=== PATIENT | female | born 1970 | race Caucasian/White ===

== ENCOUNTER 2020-06-06 09:47 | Outpatient (REF) | payer OTHER, SELFPAY ==
--- NOTE | 2020-06-06 09:51 | US_ITS ---
EXAMINATION: US PELVIS ULTRASOUND CLINICAL INFORMATION: Prior hysterectomy. Follow-up bilateral ovarian cysts. Age 49. COMPARISON: Ultrasound pelvis 02/22/2020, 08/25/2019, 05/18/2019, 03/20/2019 TECHNIQUE: Ultrasound of the pelvis is performed using both transabdominal and transvaginal transducers along with Doppler. Transvaginal imaging is performed due to inadequate visualization transabdominally. FINDINGS: Uterus: Surgically absent. Adnexa: No pelvic ascites or fluid collection. No solid mass. Normal color flow to the adnexa. No torsion. Right: The right ovary measures 4.6 x 2.5 x 4.4 cm. There is a dominant cyst demonstrated: There is mildly complicated cyst within the right ovary measuring 4.0 x 2.2 x 2.8 cm. This has some low-level internal echoes. No solid component or peripheral thrombus or color flow. This previously is anechoic and larger, measuring 6.2 x 4.7 x 5.3 cm on ultrasound 02/22/2020. There are 2 adjacent dominant follicles, the larger only 1.3 cm. Left: The left ovary measures 8.7 x 5.9 x 6.2 cm. There are 3 cysts demonstrated: There is a dominant cyst measuring 4.9 x 3.2 x 4.8 cm with peripheral intraluminal oval avascular solid component measuring 1.1 x 0.7 cm. This is not previously demonstrated. The remainder of the cyst is anechoic and the horn are imperceptibly thin. No color flow. There is an anechoic cyst measuring 5.1 x 3.3 x 4.9 cm with small adjacent satellite cyst under 2 cm. No associated color flow or solid component. Prior measurement approximately 3.2 x 2.8 cm on remeasurement prior exam. The previously described hemorrhagic cyst with intermediate internal echoes, and no color flow, measures 2.6 x 2.0 x 2.3 cm. Prior measurement 3.5 x 3.2 x 3.3 cm. US/US pelvic complete IMPRESSION: 1. Uterus: Surgically absent. 2. Right adnexa: Mildly complicated cyst 4.0 cm, decreased in size from prior ultrasound 02/22/2020. 3. Left adnexa: New indeterminate 4.9 cm cyst with oval solid mural nodule and no visible vascularity on color doppler. This could be further evaluated with pelvic MR without and with gadolinium. Simple 5.1 cm cyst increased (prior 3.2 cm). Suspected hemorraghic cyst slightly decreased 2.6 cm (prior 3.5 cm).
== END 2020-06-06 09:48 | disposition home or self-care (01) ==
LOC: HO.HMGCX 09:47
PROVIDERS: PCP Internal Medicine; Visit Provider Obstetrics & Gynecology
DX: N83.291 Other ovarian cyst, right side (principal); N83.202 Unspecified ovarian cyst, left side
CPT/HCPCS: 76830; 76856

== ENCOUNTER 2020-06-14 09:37 | Outpatient (REF) | payer OTHER, SELFPAY ==
[2020-06-16 01:33] LABS: CA-125 10 U/mL (<35)
== END 2020-06-14 09:38 | disposition home or self-care (01) ==
LOC: HO.LAB 09:37
PROVIDERS: PCP Internal Medicine; Referring Provider Internal Medicine; Visit Provider Advanced Practice Midwife
DX: N83.209 Unspecified ovarian cyst, unspecified side (principal); R10.2 Pelvic and perineal pain; Z71.2 Person consulting for explanation of examination or test findings
CPT/HCPCS: 86304

== ENCOUNTER → 2020-06-27 13:17 | Outpatient (BNVA) | payer OTHER, SELFPAY | PROVIDERS: PCP Internal Medicine; Visit Provider Obstetrics & Gynecology | DX: Z76.89 Persons encountering health services in other specified circumstances (principal) ==

== ENCOUNTER 2020-06-30 14:00 | Outpatient (REF) | payer OTHER, SELFPAY ==
--- NOTE | 2020-06-30 14:03 | MR_ITS ---
EXAMINATION: MR PELVIS WITHOUT AND WITH CONTRAST CLINICAL INFORMATION: Age 49. Prior hysterectomy. New indeterminate 4.9 cm cyst left ovary with oval solid mural nodule and no color flow. Mildly complicated cyst right adnexa decreased in size from prior ultrasound. MR for further assessment. COMPARISON: Pelvic ultrasound 06/06/2020, 02/22/2020 TECHNIQUE: MRI pelvis is performed in 3 planes. Axial images are obtained prior to and following use of 10 mL Gadavist gadolinium contrast. FINDINGS: Uterus: There is been prior hysterectomy. Right adnexa: There are 2 simple cysts right adnexa, the larger measuring 5.6 x 5.1 x 5.0 cm. The smaller is medial/mid line pelvis measuring 3.9 x 1.8 x 3.4 cm. Both cysts have uniform low signal T1, uniform high signal T2, thin smooth wall and no internal septation or solid component. No pelvic ascites. Left adnexa: There are 3 simple cysts, the largest measuring 5.3 x 4.0 x 3.6 cm. Inferior to this is a cyst 2.4 x 1.4 cm and lateral 2.3 x 2.3 x 2.0 cm. These are uniform low signal T1, uniform high signal T2, thin smooth wall and no internal septation or solid component. No visible mural nodule. There is a hemorrhagic cyst within the left ovary measuring 2.1 x 1.9 x 2.0 cm. This shows uniform homogeneous high signal T1, uniform high signal noncontrast gradient T1, low signal T2, and no enhancement following gadolinium. No pelvic ascites. Other: No bowel obstruction. No inflammatory changes in bowel or mesentery. No inguinal hernia. No lymphadenopathy. There are degenerative disc changes lumbosacral junction. MR/MR pelvis wo/w con IMPRESSION: 1. Prior hysterectomy. 2. No suspicious adnexal mass. No mural nodule or enhancing lesion. No ascites. 3. Bilateral simple cysts, largest right 5.6 cm and largest left 5.3 cm. There is also a hemorrhagic cyst in the left ovary measuring 2.1 cm.
== END 2020-06-30 14:01 | disposition home or self-care (01) ==
LOC: HO.MRI 14:00
PROVIDERS: Visit Provider Obstetrics & Gynecology
DX: N83.202 Unspecified ovarian cyst, left side (principal); N83.201 Unspecified ovarian cyst, right side
CPT/HCPCS: 72197; A9585

== ENCOUNTER → 2020-07-15 10:42 | Outpatient (BNVA) | payer OTHER, SELFPAY | PROVIDERS: PCP Internal Medicine; Visit Provider Obstetrics & Gynecology | DX: Z76.89 Persons encountering health services in other specified circumstances (principal) ==

== ENCOUNTER 2020-08-02 09:30 | Outpatient (REF) | payer OTHER, SELFPAY ==
--- NOTE | 2020-08-02 | MM_ITS ---
EXAMINATION: MM SCREENING DIGITAL BREAST TOMOSYNTHESIS, BILATERAL CLINICAL INFORMATION: Screening. Asymptomatic. The lifetime risk of breast cancer based on the Tyrer-Cuzick Model is 9%. COMPARISON: Mammography: 07/27/2019, 1 01/24/2019, 06/24/2017 TECHNIQUE: Digital breast tomosynthesis is performed in both the craniocaudal and mediolateral oblique views along with computer-aided detection (CAD). Synthesized 2D images are generated from the tomosynthesis. FINDINGS: The breasts are almost entirely fatty (ACR BI-RADS breast composition Category a). There are no significant masses, abnormal calcifications, or other abnormalities. The axillary and skin contours are unremarkable. MM/MM tomosynthesis screening BI IMPRESSION: No mammographic evidence of malignancy. ASSESSMENT: BI-RADS 1: Negative RECOMMENDATION: Routine annual mammography screening. This patient's information was entered into a reminder system with a target due date for their next mammogram.
== END 2020-08-02 09:31 | disposition home or self-care (01) ==
LOC: HO.MAMMO 09:30
PROVIDERS: PCP Internal Medicine; Visit Provider Internal Medicine
DX: Z12.31 Encounter for screening mammogram for malignant neoplasm of breast (principal)
CPT/HCPCS: 77063; 77067

== ENCOUNTER 2020-08-27 05:59 | Emergency (ER) | payer OTHER, SELFPAY ==
--- NOTE | ~2020-08-27 | CT_ITS ---
EXAMINATION: CT ABDOMEN AND PELVIS WITH CONTRAST CLINICAL INFORMATION: Abdominal pain. History of hiatal hernia surgery. Epigastric pain. COMPARISON: Abdomen CT from 09/05/2016 TECHNIQUE: Multidetector volumetric images were obtained from the superior aspect of the liver through the pubic symphysis following administration of Omnipaque 350 intravenous contrast. Precontrast dose, please refer to the separately dictated chest CT. Sagittal and coronal reformatted images were obtained on the technologist's workstation. Oral contrast: No This CT examination was performed using dose optimization techniques as appropriate, variously including the following: *Automated exposure control *Adjustment of mA and/or kV according to patient size (this includes techniques or standardized protocols for targeted exams where dose is matched to indication/reason for exam; i.e. extremities or head) *Use of iterative reconstruction technique DLP: This information is provided on the separately reported chest CT. FINDINGS: LUNG BASES: Findings in the chest are dictated separately. No pulmonary consolidation or pleural effusion at either lung base. LIVER: The liver has normal size, shape, and attenuation. No focal liver lesion. GALLBLADDER AND BILIARY TREE: The gallbladder is surgically absent. Common duct, which is chronically dilated, measures up to 1.1 cm transverse diameter. The common duct was 1 cm on 09/05/2016. There are no calcified stones within the chronically dilated duct. No intrahepatic ductal dilatation. PANCREAS: Normal. No evidence of pancreatic ductal dilatation or mass. SPLEEN: Normal. ADRENAL GLANDS: Normal. KIDNEYS AND URETERS: The kidneys have normal size. No hydroureteronephrosis, urolithiasis or perinephric fluid collection. Small subcentimeter sized cortical cyst of the upper pole of the left kidney. The ureters are unremarkable. BOWEL AND PERITONEUM: Prior sleeve gastrectomy. No dilated bowel loops. No focal bowel wall thickening or mesenteric fat stranding. Diverticulosis of sigmoid colon without diverticulitis. No abdominal abscess. ABDOMINAL WALL: No abdominal wall hernia. There is edema of subcutaneous tissues of the abdominal wall. Also, small amount of fluid is present within subcutaneous tissues of the abdominal wall anterior to the right rectus abdominis muscle. The area of fluid measures approximately 3.6 cm AP and has curvilinear appearance on sagittal reformatted images (sagittal image 68 of 114). No gas within this fluid, which is located approximately 6 cm above the level of the umbilicus. Correlate for prior surgical portal in this area of the abdominal wall. VASCULATURE: Unremarkable. LYMPH NODES: No pathologic sized lymph nodes in the abdomen or pelvis. No inguinal lymphadenopathy. BLADDER AND PELVIC VISCERA: Urinary bladder is normal. The uterus is absent. Multiple follicles of each ovary. A simple appearing cyst of the left ovary measures up to 5 cm maximum dimension. It has a stable appearance compared to 06/30/2020. A cyst of the medial right adnexa measures 2.7 cm AP and has significantly decreased in size compared to 06/30/2020. No pelvic free fluid. SKELETAL: The lumbar vertebra have normal height and alignment. No aggressive osseous lesions. Degenerative disc disease of L5-S1 (as manifest by loss of disc space, vacuum disc phenomenon, endplate irregularity and sclerosis, and osteophyte formation). CT/CT abdomen pelvis w con IMPRESSION: * There is focal subcutaneous tissue edema and subcutaneous tissue fluid in the abdominal wall anterior to the right rectus abdominis muscle, likely from recent surgery through the abdominal wall. This fluid is located approximately 6 cm above the level of the umbilicus. There is no gas within this fluid, which is presumably a bland postoperative fluid collection. No overt abscess. * Common bile duct is chronically dilated, status post remote cholecystectomy. * A cyst of the right adnexa has decreased in size compared to 06/30/2020 whereas a 5 cm cyst of the left adnexa has not significantly changed. Intermittent ultrasound surveillance imaging of adnexal cysts could be performed.
--- NOTE | ~2020-08-27 | CT_ITS ---
EXAMINATION: CT ANGIOGRAM OF THE CHEST WITH CONTRAST (CT PULMONARY ANGIOGRAM FOR PE) CLINICAL INFORMATION: Chest pain post hiatal hernia repair 08/19 COMPARISON: CXR from 08/27/2020. Abdomen CT from 09/05/2016. TECHNIQUE: Prior to contrast administration, noncontrast localization images were obtained. Subsequently, multidetector volumetric imaging was performed from the thoracic inlet to below the diaphragms following the administration of 65 mL Omnipaque 350 intravenous contrast. No contrast reaction reported. Sagittal, coronal, and MIP oblique sagittal reformatted images were obtained on the CT workstation, uploaded to PACS, and reviewed. This CT examination was performed using dose optimization techniques as appropriate, variously including the following: *Automated exposure control *Adjustment of mA and/or kV according to patient size (this includes techniques or standardized protocols for targeted exams where dose is matched to indication/reason for exam; i.e. extremities or head) *Use of iterative reconstruction technique DLP: Total exam dose-length product 1496 mGy-cm (for combined CT exams of the chest, abdomen and pelvis was present FINDINGS: LUNGS AND PLEURA: Trachea and central airways are widely patent and normal in caliber. Lungs are adequately expanded. No acute findings. There are no aspirated secretions within bronchi. No pulmonary edema, consolidation or pleural effusion. No pneumothorax. QUALITY OF STUDY/CONTRAST BOLUS: Satisfactory. CARDIOVASCULAR: Pulmonary arteries are normal in caliber. No embolic filling defects in the main, lobar or segmental vessels. The heart size is normal. No pericardial effusion. Thoracic aorta is normal; no aneurysm or dissection. MEDIASTINUM/LOWER NECK: There is borderline thickening of the wall of the distal esophagus; query if there is any history of esophagitis. No evidence of esophageal mass. No pneumomediastinum. Thyroid gland is normal. LYMPHATICS: No pathologic sized axillary, hilar or mediastinal lymph nodes. UPPER ABDOMEN: No acute findings. No contrast reflux into the inferior vena cava or hepatic veins. No overt hiatal hernia. Prior gastric sleeve surgery. Gallbladder is surgically absent and common duct is chronically dilated. OSSEOUS STRUCTURES: Moderate discovertebral degenerative change at C6-C7. Mild spondylosis of thoracic spine. Thoracic vertebra have normal height and alignment. No aggressive osseous lesions. CT/CT angio chest PE protocol IMPRESSION: * No evidence of pulmonary embolism, pneumonia or pleural effusion. * There appears to be mild, circumferential thickening of the wall of the distal esophagus, possibly from esophagitis. No evidence of esophageal mass or pneumomediastinum, status post hiatal hernia repair. * Common duct is chronically dilated in this patient who is status post prior cholecystectomy.
--- NOTE | ~2020-08-27 | XR_ITS ---
EXAMINATION: XR CHEST CLINICAL INFORMATION: Pain COMPARISON: Previous chest x-ray March 2017 TECHNIQUE: 2 views of the chest were obtained. FINDINGS: The cardiac and mediastinal contours are stable. The lungs are clear. There is no pleural effusion or pneumothorax. There are mild degenerative changes of the spine. XR/XR chest 2V IMPRESSION: Unremarkable examination.
[2020-08-27 07:06] VITALS: BP 140/89; PULSE 87; RESP 16; TEMP 37.1; O2SAT 99; BMI 37.4
--- NOTE | 2020-08-27 07:10 | ECG_ITS ---
Test Reason : CHEST DISCOMFORT Blood Pressure : / mmHG Vent. Rate : 083 BPM Atrial Rate : 083 BPM P-R Int : 146 ms QRS Dur : 084 ms QT Int : 358 ms P-R-T Axes : 055 084 017 degrees QTc Int : 420 ms Normal sinus rhythm Cannot rule out Anterior infarct , age undetermined Abnormal ECG When compared to the previous EKG of Poor R wave progression, cannot rule out anterior infarct Referred By: Generic ED Physician Electronically Signed By:Rowdy Napier
--- NOTE | 2020-08-27 08:15 | ED.CHESTPAIN ---
HPI - Chest Pain General Chief Complaint: Chest Pain Stated Complaint: Chest Discomfort Time Seen by Provider: 08/27/20 07:10 Source: patient Mode of arrival: ambulatory Limitations: no limitations History of Present Illness HPI narrative: 50 yo female with recent hiatal hernia surgery on 08/19 developed substernal stabbing chest pain that radiates to back - tried tums without relief, only taking tylenol post surgery, she states the surgery went well complaint: chest pain Onset (ago): hour(s) (last night) Timing of current episode: constant Prior episodes: No Onset: during rest Pain location: substernal Pain radiation: back Severity: moderate Quality: sharp Relieving factors: nothing Exacerbating factors: nothing Context: recent surgery Associated symptoms: nausea Treatment prior to arrival: other (tums) Related Data Home Medications Medication Instructions Recorded Confirmed calcium carbonate 500 mg calcium 500 mg PO DAILY 06/14/20 07/15/20 (1,250 mg) tablet cranberry 400 mg capsule 400 mg PO DAILY 06/14/20 07/15/20 estradiol VAGINAL 06/14/20 07/15/20 ferrous sulfate 325 mg (65 mg 325 mg PO DAILY 06/14/20 07/15/20 iron) tablet meclizine 12.5 mg tablet 12.5 mg PO DAILY 06/14/20 07/15/20 nystatin 100,000 unit/gram topical TOPICAL BID 06/14/20 07/15/20 powder omeprazole 20 mg capsule,delayed 20 mg PO QAM 06/14/20 07/15/20 release ondansetron HCl 4 mg tablet mg PO 06/14/20 07/15/20 sertraline 50 mg tablet 50 mg PO DAILY 06/14/20 07/15/20 vitamin B complex 1 tab PO DAILY 06/14/20 07/15/20 Previous Rx's Medication Instructions Recorded omeprazole 40 mg PO DAILY 14 Days #14 cap 08/27/20 sucralfate [Carafate] 5 ml PO TID 7 Days #105 ml 08/27/20 Allergies Allergy/AdvReac Type Severity Reaction Status Date / Time acetaminophen [Percocet] Allergy Unknown unknown Verified 06/27/20 13:24 oxycodone [From PERCOCET] Allergy Unknown NAUSEA & Verified 06/27/20 13:24 VOMITING, nausea/vomitting Review of Systems Review of Systems: Constitutional : No Weight loss, No Fever, No Chills ENT/Mouth : No sore throat, No Rhinorrhea Eyes: No Eye Pain, No Swelling Cardiovascular : pos Chest Pain, no SOB, no Dyspnea on Exertion, No Orthopnea, No Edema, No Palpitations Respiratory : No Cough, No Sputum Gastrointestinal : pos Nausea, No Vomiting, No Diarrhea, No abdominal Pain, No Hematochezia, No Melena Genitourinary : No Dysuria, No Urinary Frequency Musculoskeletal : No joint pain, No Myalgias, No Joint Swelling Skin : No Skin Lesions, No rash Neuro : No Weakness, No Numbness, No Dizziness, No Headache Psych : No Anxiety/Panic, No Depression Heme/Lymph: No Bruising, No Lymphadenopathy Endocrine : No Polyuria, No Polydipsia All other systems reviewed and are negative [facility] Past Medical History Attestation statement: The following information was validated with the patient. Medical History Hiatal hernia History of anxiety History of depression Maternal UTI (urinary tract infection), recurrent Surgical History H/O breast surgery H/O gastric bypass H/O: hysterectomy Hx of section Hx of cholecystectomy Family History Family History Father Leanne Gehrig disease Heart disease Dyslipidemia Hypertension Mother Bladder cancer Social History Social History Alcohol intake: never Smoking Status: Never smoker Use of substances other than those prescribed or required for medical reasons: No Advance Directives: Yes Advance Directives Information Provided: Yes Advance Directives on File: No Sexual orientation: Straight/Heterosexual Physical Exam Vital Signs: Vital Signs: Last Vital Signs Temp 98.7 F 08/27/20 08:28 Pulse 68 08/27/20 10:18 Resp 13 08/27/20 10:18 BP 132/58 L 08/27/20 10:18 Pulse Ox 98 08/27/20 10:18 Body Mass Index 37.4 Appearance: Alert. Oriented X3. No acute distress. Eyes: Pupils equal, round and reactive to light. ENT: Pharynx normal. Neck: Normal inspection. Neck supple. CVS: Normal heart rate and rhythm. Pulses normal. Respiratory: No respiratory distress. Breath sounds normal. some splinting Abdomen: Soft and nontender. incisions are c/d/i Skin: Skin warm and dry. Normal skin color. Normal skin turgor. Extremities: No lower extremity edema. No calf ttp Neuro: Oriented X 3. No motor deficit. No sensory deficit. Course Course Course Narrative: negative workup stable for DC other than esophagitis will start on PPI x 2 weeks no evidence of abscess on clinical exam likely seroma MDM - Chest Pain MDM Narrative Medical decision making narrative: 50 yo female with recent hiatal hernia 2 at [facility] [place]. Myers developed substernal chest pain last night radiating to the back - some nausea, no dyspnea, took TUMS without relief at this time will need labs, CTA:PE to r/o PE but also evaluate surgical site, IV morphine and pepcid for pain Lab Data Result diagrams: 08/27/20 09:21 08/27/20 09:21 Labs: Lab Results 08/27/20 08/27/20 08/27/20 Range/Units 09:21 09:21 09:21 WBC 11.9 H (4.8-10.8) X10*3/uL RBC 4.19 L (4.20-5.50) X10*6/uL Hgb 12.6 (12.0-16.0) g/dl Hct 37.3 (37-47) % MCV 89.0 (80-98) fL MCH 30.1 (27.0-33.0) pg MCHC 33.8 (31.0-35.0) g/dl RDW 11.6 (11.0-16.0) % Plt Count 226 (160-400) X10*3/uL MPV 9.9 (9.4-12.3) fL Immature Gran % (Auto) 0.3 (0.0-0.4) % Neut % (Auto) 82.4 H (45-73) % Lymph % (Auto) 10.2 L (20-40) % Coffee % (Auto) 5.9 (2-11) % Eos % (Auto) 0.9 (0-4) % Baso % (Auto) 0.3 (0-2) % Lymph # (Auto) 1.2 (1.2-4.9) X10*3/uL Coffee # (Auto) 0.7 (0.1-1.2) X10*3/uL Eos # (Auto) 0.1 (0.0-0.4) X10*3/uL Baso # (Auto) 0.0 (0.0-0.2) X10*3/uL Abs Immat Gran (auto) 0.04 H (0.00-0.03) X10*3/uL Absolute Neuts (auto) 9.8 H (2.0-8.3) X10*3/uL Absolute Nucleated RBC 0.000 (0.0-0.012) X10*3/uL Nucleated RBC % (auto) 0.0 (0.0-0.2) /100WBC PT (10.8-13.0) SEC INR (0.9-1.1) APTT (24.1-38.0) SEC Sodium 140 (135-145) mmol/L Potassium 4.1 (3.3-5.1) mmol/L Chloride 104 (96-108) mmol/L Carbon Dioxide 26 (22-29) mmol/L Anion Gap 14 (12-20) BUN 11 (9-16) mg/dL Creatinine 0.66 (0.5-1.4) mg/dL Estim Creat Clear Calc 123.4 Estimated GFR > 60 Random Glucose 92 (60-115) mg/dL Calcium 9.3 (8.4-10.2) mg/dL Magnesium 1.8 (1.6-2.6) mg/dL Total Bilirubin 0.6 (0.0-1.0) mg/dL Direct Bilirubin 0.2 (0.0-0.5) mg/dL AST 19 (5-31) U/L ALT 37 H (0-31) U/L Alkaline Phosphatase 94 (39-117) U/L Troponin I High Sens (<3.5-17.0) ng/L Total Protein 6.7 (6.5-8.0) g/dL Albumin 4.1 (3.5-5.0) g/dL Lipase 25 (8-78) U/L COVID-19 (KRYSTAL) Negative (Negative) COVID-19 Clin Com See Note 08/27/20 08/27/20 Range/Units 09:21 09:21 WBC (4.8-10.8) X10*3/uL RBC (4.20-5.50) X10*6/uL Hgb (12.0-16.0) g/dl Hct (37-47) % MCV (80-98) fL MCH (27.0-33.0) pg MCHC (31.0-35.0) g/dl RDW (11.0-16.0) % Plt Count (160-400) X10*3/uL MPV (9.4-12.3) fL Immature Gran % (Auto) (0.0-0.4) % Neut % (Auto) (45-73) % Lymph % (Auto) (20-40) % Coffee % (Auto) (2-11) % Eos % (Auto) (0-4) % Baso % (Auto) (0-2) % Lymph # (Auto) (1.2-4.9) X10*3/uL Coffee # (Auto) (0.1-1.2) X10*3/uL Eos # (Auto) (0.0-0.4) X10*3/uL Baso # (Auto) (0.0-0.2) X10*3/uL Abs Immat Gran (auto) (0.00-0.03) X10*3/uL Absolute Neuts (auto) (2.0-8.3) X10*3/uL Absolute Nucleated RBC (0.0-0.012) X10*3/uL Nucleated RBC % (auto) (0.0-0.2) /100WBC PT 12.3 (10.8-13.0) SEC INR 1.0 (0.9-1.1) APTT 34.8 (24.1-38.0) SEC Sodium (135-145) mmol/L Potassium (3.3-5.1) mmol/L Chloride (96-108) mmol/L Carbon Dioxide (22-29) mmol/L Anion Gap (12-20) BUN (9-16) mg/dL Creatinine (0.5-1.4) mg/dL Estim Creat Clear Calc Estimated GFR Random Glucose (60-115) mg/dL Calcium (8.4-10.2) mg/dL Magnesium (1.6-2.6) mg/dL Total Bilirubin (0.0-1.0) mg/dL Direct Bilirubin (0.0-0.5) mg/dL AST (5-31) U/L ALT (0-31) U/L Alkaline Phosphatase (39-117) U/L Troponin I High Sens < 3.5 (<3.5-17.0) ng/L Total Protein (6.5-8.0) g/dL Albumin (3.5-5.0) g/dL Lipase (8-78) U/L COVID-19 (KRYSTAL) (Negative) COVID-19 Clin Com ECG Data ECG #1: Attestation: I personally reviewed and interpreted this ECG as follows: ECG interpretation date: 08/27/20 ECG interpretation time: 08:26 Interpretation: Rate: 83 Rhythm: NSR Thompson: normal Normal P waves. Normal FARHAD. Normal QRS complex. ST T wave : no PAULA, inverted III qTC: normal prior studies: no acute ishcemia The study has been interpreted contemporaneously by me. . Discharge Plan Discharge Clinical Impression: Esophagitis Patient Disposition: Home, Self-Care Instructions: Esophagitis (ED) Additional Instructions: return to ED for any worsening symptoms or concerns * There is focal subcutaneous tissue edema and subcutaneous tissue fluid in the abdominal wall anterior to the right rectus abdominis muscle, likely from recent surgery through the abdominal wall. This fluid is located approximately 6 cm above the level of the umbilicus. There is no gas within this fluid, which is presumably a bland postoperative fluid collection. No overt abscess. this is a seroma - will go away on its own * Common bile duct is chronically dilated, status post remote cholecystectomy. * A cyst of the right adnexa has decreased in size compared to 06/30/2020 whereas a 5 cm cyst of the left adnexa has not significantly changed. Intermittent ultrasound surveillance imaging of adnexal cysts could be performed. Prescriptions: New sucralfate [Carafate] 100 mg/mL suspension 5 ml PO TID 7 Days Qty: 105 RF: 0 omeprazole 40 mg capsule,delayed release(DR/EC) 40 mg PO DAILY 14 Days Qty: 14 RF: 0 No Action estradiol 0.01 % (0.1 mg/gram) cream vaginal RF: 0 sertraline 50 mg tablet 50 mg PO DAILY RF: 0 omeprazole 20 mg capsule,delayed release(DR/EC) 20 mg PO QAM RF: 0 nystatin 100,000 unit/gram powder topical BID RF: 0 ondansetron HCl 4 mg tablet PO RF: 0 cranberry 400 mg capsule 400 mg PO DAILY RF: 0 ferrous sulfate 325 mg (65 mg iron) tablet 325 mg PO DAILY RF: 0 calcium carbonate [Calcium 500] 500 mg calcium (1,250 mg) tablet 500 mg PO DAILY RF: 0 meclizine 12.5 mg tablet 12.5 mg PO DAILY RF: 0 vitamin B complex [B Complex-Vitamin B12] Tablet 1 tab PO DAILY RF: 0 Referrals: Henri Freeman MD [Primary Care Provider] - 2 days
[2020-08-27 08:28] VITALS: BP 134/62; PULSE 100; RESP 18; TEMP 37.1; O2SAT 99
--- NOTE | 2020-08-27 08:43 | PC.NURSE ---
pt states she started having 4/10 chest pain last night which she thought might have been acid reflux so she took 3 tums and 325mg tylenol with no releif. pain has gradually gotten worse since last night. pt stated she recently had surgery to repair hernia within the last month, purple/blue bruising from surgery still present on abdomen. pt states she had 5 incisions total (three periumbilical and one on each side of abdomen), 3 of which still have tape protecting the stitches. pt states she was instructed by surgeon not to pull stitches out as they would dissolve. pt denies having pain around bruising area and states that the pain is substernal radiating to the middle of her back which gets worse when she tries to take deep breaths or cough. pt denies feeling short of breath, breathing is non-labored. aware
[2020-08-27 09:28] LABS: MANUAL DIFF FLAG NO
[2020-08-27] MEDS: 0.9 % Sodium Chloride 1,000 ML 999 ML IVCONT (09:29)
[2020-08-27] MEDS: ondansetron HCL 4 MG/2 ML VIAL IVPUSH (09:32)
[2020-08-27 09:34] LABS: Basophils Percent Auto 0.3 % (0-2); Eosinophils Absolute Auto 0.1 X10*3/uL (0.0-0.4); Eosinophils Percent Auto 0.9 % (0-4); Hematocrit 37.3 % (37-47); Hemoglobin 12.6 g/dl (12.0-16.0); Imm Gran Abs Auto 0.04 X10*3/uL (0.00-0.03); Imm Gran Pct Auto 0.3 % (0.0-0.4); Lymphocytes Absolute Auto 1.2 X10*3/uL (1.2-4.9); Lymphocytes Percent Auto 10.2 % (20-40); Mean Corpuscular HGB Conc 33.8 g/dl (31.0-35.0); Mean Corpuscular Hemoglobin 30.1 pg (27.0-33.0); Mean Platelet Volume 9.9 fL (9.4-12.3); Monocytes Absolute Auto 0.7 X10*3/uL (0.1-1.2); Monocytes Percent Auto 5.9 % (2-11); Neutrophils Absolute Auto 9.8 X10*3/uL (2.0-8.3); Neutrophils Percent Auto 82.4 % (45-73); Platelet Count 226 X10*3/uL (160-400); Red Blood Count 4.19 X10*6/uL (4.20-5.50); Red Cell Distribution Width 11.6 % (11.0-16.0); White Blood Count 11.9 X10*3/uL (4.8-10.8)
[2020-08-27] MEDS: Famotidine/PF 20 MG/2 ML VIAL IVPUSH (09:34)
[2020-08-27 09:41] LABS: Prothrombin Time 12.3 SEC (10.8-13.0)
[2020-08-27 09:43] LABS: Partial Thromboplastin Time 34.8 SEC (24.1-38.0)
[2020-08-27] MEDS: Morphine Sulfate 4 MG/ML CARTRIDGE IVPUSH (09:43)
[2020-08-27 09:53] LABS: COVID-19 Test Negative (Negative); IDNOW Serial# 9DD0AD1C
[2020-08-27 10:00] LABS: Alanine Aminotransferase 37 U/L (0-31); Albumin Level 4.1 g/dL (3.5-5.0); Alkaline Phosphatase 94 U/L (39-117); Anion Gap 14 (12-20); Aspartate Amino Transferase 19 U/L (5-31); Bilirubin Direct 0.2 mg/dL (0.0-0.5); Bilirubin Total 0.6 mg/dL (0.0-1.0); Blood Urea Nitrogen 11 mg/dL (9-16); Calcium 9.3 mg/dL (8.4-10.2); Carbon Dioxide 26 mmol/L (22-29); Chloride 104 mmol/L (96-108); Creatinine Clr Calc Pharmacy 123.4; Estimated Glomerular Filt Rate > 60; Glucose Random 92 mg/dL (60-115); Lipase 25 U/L (8-78); Magnesium 1.8 mg/dL (1.6-2.6); Potassium 4.1 mmol/L (3.3-5.1); Sodium 140 mmol/L (135-145); Total Protein 6.7 g/dL (6.5-8.0)
[2020-08-27 10:03] LABS: Troponin-I High Sensitivity < 3.5 ng/L (<3.5-17.0)
[2020-08-27 10:18] VITALS: BP 132/58; PULSE 68; RESP 13; O2SAT 98
[2020-08-27] MEDS: iohexoL 350 MG/ML 100 ML INFUS..BTL 65 ML IV (11:20)
== END 2020-08-27 12:20 | disposition home or self-care (01) ==
PROVIDERS: Emergency Provider Emergency Medicine; PCP Internal Medicine
DX: K20.90 Esophagitis, unspecified without bleeding (principal); Z20.822 Contact with and (suspected) exposure to COVID-19; Z98.890 Other specified postprocedural states; K44.9 Diaphragmatic hernia without obstruction or gangrene
CPT/HCPCS: 36415; 71046; 71275; 74177; 80048; 80076; 83690; 83735; 84484; 85025; 85610; 85730; 87635; 93005; 96361; 96374; 96375; 99284; 99285; J2270; J2405; Q9967

== ENCOUNTER 2020-09-08 12:36 | Inpatient (IN) | payer OTHER, SELFPAY ==
[2020-09-02 14:34] VITALS: BMI 37.4
[2020-09-08] VITALS (21 sets, daily range): BP systolic 106–162; BP diastolic 50–86; PULSE 54–97; RESP 16–18; TEMP 35.8–37.3; O2SAT 95–100
[2020-09-08 07:45] LABS: HCG Quantitative < 2 mIU/mL
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
[2020-09-08] MEDS: Lactated Ringers 1,000 ML 100 ML IVCONT (08:27)
[2020-09-08] MEDS: Scopolamine 1.5 MG PATCH.TD.3 TRANSDERMA (08:29)
--- NOTE | 2020-09-08 09:14 | MHC.SHP ---
Pre-Procedural Eval Section A The patient is an INPATIENT: No Changes since office visit: No Cold of Flu in the past 2 weeks, No New Medical Problems, No Changes in Medication and No Patient answered all questions The History & Physical has been completed within 30 days and I have reviewed it.: Yes Section B Chief Complaint: Ovarian Cyst Allergies: Allergies Allergy/AdvReac Type Severity Reaction Status Date / Time oxycodone [From PERCOCET] Allergy Intermediate NAUSEA & Verified 09/08/20 07:45 VOMITING, nausea/vomitting Plan I have reviewed the history and physical and performed a pertinent physical examination on my patient. No changes have occurred unless specified.
[2020-09-08] MEDS: ondansetron HCL 4 MG/2 ML VIAL IVPUSH (12:43)
[2020-09-08] MEDS: HYDROmorphone HCl 0.5 MG/0.5 ML SYRINGE 0.25 MG IVPUSH ×4 (12:43→13:22)
--- NOTE | 2020-09-08 12:44 | W.PM.OPN ---
Operative Note Operative Note Date of Service: 09/08/20 Narrative: Ms. Nancy Smims is a 50 year old who is s/p abdominal hysterectomy for uterine fibroids who presented with a history of recurrent ovarian cysts and requesting bilateral oopherectomy. She was counseled regarding the risks, including increased risk of osteoporosis, cardiac disease, and all cause mortality in women undergoing premenopausal oopherectomy, and elected to proceed with planned laparoscopic, possible abdominal bilateral oopherectomy. Pre-Op Diagnosis: Bilateral ovarian cysts Post-Op Diagnoses: Same, extensive pelvic adhesions Procedures performed: exploratory laparoscopy converted to exploratory laparotomy Air Support Operations Operator: Matthew Hayden MD Consult: Dr. Hill, general surgery The patient was taken to the operating room where a time out was performed to confirm correct patient and correct procedure. General anesthesia was established. The patient was then positioned on the operating table in the dorsal lithotomy position with the legs supported using stirrups. All pressure points were padded and a warm blanket was placed to maintain control of core body temperature. The patient was then prepped and draped in the usual sterile fashion. A red rubber catheter was inserted and the bladder was drained. Attention was turned to the abdomen where a 5mm vertical infraumbilical incision was made. The 5mm trocar was introduced under direct visualization using the laparoscopy within the sleeve of the trocar. The trocar was not long enough to achieve intraperitoneal placement. The incision was extended and the fascia grasped with donny clamps and tented up and dissected with the scalpel. The peritoneum was then identified and grasped with a long itz clamp, tented up, and dissected sharply with metzenbaum scissors. The Herman trocar was then inserted. The camera was introduced and pneumoperitoneum was established using carbon dioxide. Inspection of the abdominal cavity showed no evidence of injury to the bowel, bladder, or vasculature. The Herman trocar was subsequently removed as it was found not to be long enough to remain in place and replaced with a longer trocar. The camera was again introduced and pneumoperitoneum re-established. A large adhesion of what appeared to be both bowel and omentum was noted just right of the midline to the anterior abdominal wall. Intestinal adhesions to the pelvic sidewalls bilaterally were noted. Attention was turned to the pelvis. The patient was placed into Trendelenburg position. A small incision was made in the midline approximately 2cm above the pubic symphysis. A 5mm trocar was attempted to be introduced through this incision under direct visualization with the laparoscope but was unable to be visualized with the laparoscope. An atraumatic grasper was inserted through the trocar and confirmed to be within the abdominal cavity; however the location of trocar entry was unable to be confirmed and there was concern that it may have been inserted through the adhesion (which was limiting visibility). The camera was removed and introduced through the suprapubic incision and the area immediately below the trocar was noted to be clear; however, the trocar was opaque and again the location of entry was unable to be confirmed. A small incision was then made on the patient's left, approximately 4cm superior and 4cm medial to the left ASIS and a 5mm trocar was introduced through this incision under direct visualization with the laparoscope. While this trocar was being placed, the suprapubic trocar was removed by the food service assistant. The camera was introduced through the left trocar and inspection was performed to attempt to identify the location of the trocar entry. There was a defect in the fascia noted in the anterior abdominal wall just distal to the bowel adhesion; however, as the trocar had been removed it was unclear whether this was the site of the trocar. The decision was made to open and call for general surgery to run the bowel in order to confirm that no bowel injury had occured. The trocars were removed and the infraumbilical incision extended vertically towards the pelvis with the scalpel. Bovie electrocautery was then used to sharply dissect the subcutaneous tissue. The surgeon's fingers were inserted through the previously incised fascia and a malleable retracted was inserted below the surgeon's fingers and bovie electrocautery was used to extend the fascial incision. Dr. Hill of general surgery joined the case at this time to perform inspection of the bowel. After Sergio had completed an inspection and reported feeling confident that no bowel injury had occurred, an attempt was made to retract the bowel back to allow visualization of the ovaries; however, the ovaries were not identified. There was a brief discussion about the possibility of dissecting the bowel adhesions; however, all three surgeons agreed that further dissection was likely to do more harm than benefit and the decision was made to close. Good hemostasis was confirmed. The fascia was tented up with kochers and closed with a Loop PDS in running fashion. The subcutaneous layer was closed with 2-0 Vicryl in interrupted sutures in three layers. The vertical incision and the left lateral incision were closed with paras. The suprapubic incision was closed with dermabond. 24cc of 0.5% marcaine was injected subcutaneously. The patient was transferred to the recovery room in stable condition. All needle, sponge, and instrument counts were noted to be correct x2 at the end of the procedure.
[2020-09-08] MEDS: Ketorolac Tromethamine 30 MG/ML VIAL IVPUSH ×2 (13:33→18:00)
--- NOTE | 2020-09-08 14:00 | W.PM.OPN ---
Operative Note Operative Note Date of Service: 09/08/20 Narrative: This is an intraoperative consult for the patient. I was called to consult intraoperatively by the gynecologists. The patient was planned for laparoscopic oophorectomy for ovarian cysts. Laparoscopic examination apparently revealed multiple adhesions. On placement of a suprapubic port, the surgeon stated that she could not be visualized where this went through because of adhesions obscuring the for field of view from the laparoscope. Because of the concern for viscus injury, the procedure was converted to an open procedure. I was asked to see if there was any evidence of viscus injury. When I scrubbed in, I had placed Ortiz retractors on the abdominal wall. It is noted that the patient was morbidly obese and had a thick amount of subcutaneous fat. Post able to see the small bowel loops right under the trocar site on the suprapubic margin. I was able to pull up the small bowel loops and examined this carefully starting from what appeared to be the distal ileum to the jejujunum in the upper part of the abdomen. I read the small bowel loops. I did not find any evidence of any serosal tear, perforation, or any small injury. There was no bleeding vessels within the mesentery. I was able to see the rectum as well along with the sigmoid. Again, there were no evidence of any injury. There was note of a densely adherent small bowel loops in the right side. However, visible part of this loop did not appear to have any injury at all. I did not feel that we needed to release this incision small bowel loop in visualize the posterior aspect as any evidence of injury will be seen on the exposed area and not posteriorly. Furthermore, mobilization of this very densely adherent small bowel loops would have presented with significant risks for enterotomies. The pelvis and the abdomen is examined multiple times. There is no evidence of any fecal spillage, bleeding, or spillage of any enteric contents. Furthermore, with examination of the trajectory of the suprapubic port, it was extremely unlikely that any injury would have been missed. The motorized squad lieutenant were present during my part of the procedure as well.
[2020-09-08] MEDS: HYDROmorphone HCl 0.5 MG/0.5 ML SYRINGE 1 MG IVPUSH (19:32)
[2020-09-08] MEDS: 0.9 % Sodium Chloride Flush 3 ML SYRINGE IVFLUSH (19:33)
[2020-09-09] VITALS (8 sets, daily range): BP systolic 105–151; BP diastolic 41–61; PULSE 58–75; RESP 12–20; TEMP 36.2–37.1; O2SAT 96–100; BMI 37.4
[2020-09-09] MEDS: Ketorolac Tromethamine 30 MG/ML VIAL IVPUSH ×4 (01:08→19:14)
[2020-09-09] MEDS: Lactated Ringers 1,000 ML 100 ML IVCONT ×3 (01:13→21:10)
[2020-09-09 05:15] LABS: MANUAL DIFF FLAG NO
[2020-09-09 05:17] LABS: Basophils Percent Auto 0.2 % (0-2); Eosinophils Percent Auto 0.2 % (0-4); Hematocrit 32.4 % (37-47); Hemoglobin 10.8 g/dl (12.0-16.0); Imm Gran Abs Auto 0.04 X10*3/uL (0.00-0.03); Imm Gran Pct Auto 0.4 % (0.0-0.4); Lymphocytes Absolute Auto 1.7 X10*3/uL (1.2-4.9); Lymphocytes Percent Auto 16.7 % (20-40); Mean Corpuscular HGB Conc 33.3 g/dl (31.0-35.0); Mean Corpuscular Hemoglobin 30.2 pg (27.0-33.0); Mean Corpuscular Volume 90.5 fL (80-98); Mean Platelet Volume 10.4 fL (9.4-12.3); Monocytes Absolute Auto 0.8 X10*3/uL (0.1-1.2); Monocytes Percent Auto 8.2 % (2-11); Neutrophils Absolute Auto 7.6 X10*3/uL (2.0-8.3); Neutrophils Percent Auto 74.3 % (45-73); Platelet Count 191 X10*3/uL (160-400); Red Blood Count 3.58 X10*6/uL (4.20-5.50); Red Cell Distribution Width 12.3 % (11.0-16.0); White Blood Count 10.2 X10*3/uL (4.8-10.8)
[2020-09-09 05:43] LABS: Anion Gap 10 (12-20); Blood Urea Nitrogen 11 mg/dL (9-16); Calcium 8.5 mg/dL (8.4-10.2); Carbon Dioxide 26 mmol/L (22-29); Chloride 104 mmol/L (96-108); Creatinine Clr Calc Pharmacy 116.4; Estimated Glomerular Filt Rate > 60; Glucose Random 107 mg/dL (60-115); Potassium 4.4 mmol/L (3.3-5.1); Sodium 136 mmol/L (135-145)
--- NOTE | 2020-09-09 07:35 | PM.GYNPNOP ---
UNIVERSAL BRANCH CONSULTANT - Subjective Subjective Date of Service: 09/09/20 Interval history: Ms. Nancy Simms is a 50yo on POD#1 s/p exploratory laparoscopy converted to exploratory laparotomy. She is doing well this morning; she reports that she feels well except for pain at her incision site. She denies fevers/chills, chest pain, SOB. She reports that she had a lot of nausea right after waking up from surgery but that this has since resolved. She was able to tolerate dinner last night and has been up and ambulating. Mccracken catheter is in place with adequate UOP overnight. She has not yet passed flatus. 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 Vital signs: Temp Pulse Resp BP Pulse Ox 97.2 F 63 16 105/46 L 97 09/09/20 04:00 09/09/20 04:00 09/09/20 04:00 09/09/20 04:00 09/09/20 04:00 Body Mass Index 37.4 Constitutional General Appearance: Obese Lungs Respiratory Effort: No accessory muscle usage Auscultation: Clear to auscultation Cardiovascular Auscultation: RRR Abdomen Auscultation/Inspection/Palpation: Normal bowel sounds, Soft, Tenderness and Other (dressing in place, C/D/I) UNIVERSAL BRANCH CONSULTANT - Prog Note: Results Labs CBC & Chem 7: 09/09/20 04:44 09/09/20 04:44 Labs: Laboratory Results - last 24 hr 09/08/20 09/09/20 09/09/20 07:04 04:44 04:44 WBC 10.2 RBC 3.58 L Hgb 10.8 L Hct 32.4 L MCV 90.5 MCH 30.2 MCHC 33.3 RDW 12.3 Plt Count 191 MPV 10.4 Immature Gran % (Auto) 0.4 Neut % (Auto) 74.3 H Lymph % (Auto) 16.7 L Dewey % (Auto) 8.2 Eos % (Auto) 0.2 Baso % (Auto) 0.2 Lymph # (Auto) 1.7 Dewey # (Auto) 0.8 Eos # (Auto) 0.0 Baso # (Auto) 0.0 Abs Immat Gran (auto) 0.04 H Absolute Neuts (auto) 7.6 Absolute Nucleated RBC 0.000 Nucleated RBC % (auto) 0.0 Sodium 136 Potassium 4.4 Chloride 104 Carbon Dioxide 26 Anion Gap 10 L BUN 11 Creatinine 0.70 Estim Creat Clear Calc 116.4 Estimated GFR > 60 Random Glucose 107 Calcium 8.5 D Beta HCG, Quant < 2 UNIVERSAL BRANCH CONSULTANT - A/P (1) Post-operative state: Status: Acute Assessment and Plan: Ms. Nancy Simms is overall doing well this morning. As her pain is still at a 7-10 with movement on IV medication, we agreed that we will continue IV pain medication today with a goal to switch her to PO pain medication tomorrow with possible afternoon discharge vs discharge on POD#3. Mccracken catheter to be removed this morning. CBC showed mild anemia, will start ferrous sulfate 325mg QD. We reviewed again this morning the surgical findings and the fact that we did not, in fact, remove her ovaries. All of her questions were answered to the best of my ability. Assessment/Plan Procedure/Diagnosis: Procedures Operation Date: 09/08/20 08:40 Actual Procedures Side Surgeon p Oopherectomy laparoscopic CONVERTED TO OPEN Bilateral Lisha Bauman MD Time Spent With Patient Time: Total time spent is greater than 50% in coordination of care (as documented) at patient's floor/unit and/or counseling patient: Time with patient: 15 - 24 minutes
[2020-09-09] MEDS: HYDROmorphone HCl 0.5 MG/0.5 ML SYRINGE 1 MG IVPUSH ×3 (07:47→18:13)
[2020-09-09] MEDS: Ferrous Sulfate 300 MG/5 ML LIQUID PO (07:56)
--- NOTE | 2020-09-09 09:48 | MHC.CM.PN ---
nurse neonatal intensive care nurse note electronic medical record reviewed along with case discussed with staff nurse, met with patient explained the role f the nurse neonatal intensive care nurse in the transition from hospital to home , patient was admitted per documentation for ovarian cyst attempted to d laparoscopic ovarian cyst removal found multiple adhesions , intra op cons with general surgeon and converted to open, patient reports that she has had a hysterectomy in the past , has had hematruia in her urine and is followed by her pcp ,renal physician and urologist. 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 she anticipates she will be out of work for 4 weeks. 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 she reported that she has had meli and used in the past a cpap macjhine but no longer, she has anxiety/depression which her pcp prescribes medications she declined any additional needs or referrals . discharge plan home where she resides with her and son pcp dr delmi duarte patient instructed to call for post hospital discharge fllow up transportation -family peoplesoft taleo manager surguiial f/u per discharge instructions
[2020-09-10] MEDS: Ketorolac Tromethamine 30 MG/ML VIAL IVPUSH ×2 (00:47→07:41)
[2020-09-10] MEDS: 0.9 % Sodium Chloride Flush 3 ML SYRINGE IVFLUSH ×2 (00:48→07:41)
--- NOTE | 2020-09-10 03:22 | PC.NURSE ---
Patient passing flatus, ambulating in [place].
[2020-09-10 03:44] VITALS: BP 135/64; PULSE 58; RESP 16; TEMP 36.8; O2SAT 97
[2020-09-10 07:26] VITALS: BP 123/66; PULSE 66; RESP 18; TEMP 37.6; O2SAT 97
[2020-09-10] MEDS: Ferrous Sulfate 300 MG/5 ML LIQUID PO (07:41)
[2020-09-10] MEDS: Lactated Ringers 1,000 ML 100 ML IVCONT (07:41)
[2020-09-10 08:00] VITALS: O2SAT 97
--- NOTE | 2020-09-10 09:15 | P.PNOB_ITS ---
ORNAMENTAL IRON ERECTOR - Subjective Subjective Date of Service: 09/10/20 Interval history: Ms. Nancy Simms is a 50yo on POD#2 s/p exploratory laparoscopy converted to exploratory laparotomy. She is doing well this morning; she reports that her pain is much improved since first coming out of surgery. Pain is up to a 5/10 when she moves; otherwise she does not feel it and describes it as soreness. She is more tender on the left compared to the right. She denies fevers/chills, chest pain, SOB. She has no nausea and is tolerating solids without difficulty. Mccracken catheter was removed yesterday morning and she is voiding without difficulty. She has been passing flatus since yesterday. 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 Vital signs: Temp Pulse Resp BP Pulse Ox 99.7 F 66 18 123/66 97 09/10/20 07:26 09/10/20 07:26 09/10/20 07:26 09/10/20 07:26 09/10/20 07:26 Body Mass Index 37.4 Constitutional General Appearance: Morbidly obese Incision Incision: Incision C/D/I (paras in place, extensive bruising around distal incision, extending 6cm laterally on the right and 4cm laterally on the left) Lungs Respiratory Effort: No accessory muscle usage Auscultation: Clear to auscultation Cardiovascular Auscultation: RRR Abdomen Auscultation/Inspection/Palpation: Normal bowel sounds, Soft, Non-distended and Tenderness ORNAMENTAL IRON ERECTOR - Prog Note: Results Labs CBC & Chem 7: 09/09/20 04:44 09/09/20 04:44 ORNAMENTAL IRON ERECTOR - A/P (1) Post-operative state: Status: Acute Assessment and Plan: Ms. Nancy Simms is amenable to switching her IV pain medication to oral this morning. IV toradol, dilaudid, ondansetron discontintued. Scheduled PO ibuprofen/tylenol and PRN dilaudid and ondansetron ordered. I discussed that I will check in this afternoon to see whether she feels comfortable going home today and she reported feeling happy with that plan. Plan for potential discharge home this evening vs tomorrow morning. Assessment/Plan Procedure/Diagnosis: Procedures Operation Date: 09/08/20 08:40 Actual Procedures Side Surgeon p Oopherectomy laparoscopic CONVERTED TO OPEN Bilateral Lisha Mitul, MD Time Spent With Patient Time: Total time spent is greater than 50% in coordination of care (as documented) at patient's floor/unit and/or counseling patient: 25 Time with patient: 15 - 24 minutes
--- NOTE | 2020-09-10 10:57 | PC.NURSE ---
Per Dr. Bauman pt does not need IV access. Pt IV starting to hurt. Pt IV fluids paused per MD request. IV removed, no issues.
[2020-09-10 11:24] VITALS: BP 123/61; PULSE 68; RESP 17; TEMP 37.1; O2SAT 97
[2020-09-10] MEDS: HYDROmorphone HCl 2 MG TABLET PO (12:35)
[2020-09-10] MEDS: Acetaminophen 325 MG TABLET 650 MG PO ×2 (12:35→21:07)
[2020-09-10 15:33] VITALS: BP 120/56; PULSE 65; RESP 20; TEMP 37; O2SAT 97
[2020-09-10] MEDS: Ibuprofen 800 MG TABLET PO (17:52)
[2020-09-10 19:09] VITALS: BP 126/57; PULSE 63; RESP 20; TEMP 37.3; O2SAT 97
[2020-09-11] VITALS: BP 125/60; PULSE 56; RESP 16; TEMP 37.1; O2SAT 97
[2020-09-11] MEDS: Ibuprofen 800 MG TABLET PO ×2 (02:04→09:27)
[2020-09-11 03:29] VITALS: BP 149/84; PULSE 61; RESP 18; TEMP 36.7; O2SAT 97
[2020-09-11] MEDS: Acetaminophen 325 MG TABLET 650 MG PO ×2 (05:16→14:30)
[2020-09-11 06:32] VITALS: BMI 41.5
[2020-09-11 07:22] VITALS: BP 134/60; PULSE 64; RESP 18; TEMP 36.3; O2SAT 99
--- NOTE | 2020-09-11 09:24 | P.PNOB_ITS ---
DIGITAL AD TRAFFICKER - Subjective Subjective Date of Service: 09/11/20 Interval history: Ms. Nancy Simms is a 50yo on POD#3 s/p exploratory laparoscopy converted to exploratory laparotomy. She is doing well this morning; she reports that her pain is much improved since first coming out of surgery. Pain is up to a 3-4/10 when she moves; otherwise she does not feel it and describes it as soreness. She does report a lot of cramping this morning; although she is passing flatus, she has yet to have a bowel movement and feels that she needs to go. She denies fevers/chills, chest pain, SOB. She has no nausea and is tolerating solids without difficulty. She is voiding without difficulty. She has been passing flatus. MANAGER PORTABLE Physical Exam Vitals Vital signs: Temp Pulse Resp BP Pulse Ox 97.4 F 64 18 134/60 99 09/11/20 07:22 09/11/20 07:22 09/11/20 07:22 09/11/20 07:22 09/11/20 07:22 Body Mass Index 41.5 Constitutional General Appearance: Morbidly obese Incision Incision: Incision C/D/I and Drainage serosanguinous (Minimal drainage) Lungs Respiratory Effort: No accessory muscle usage Auscultation: Clear to auscultation Cardiovascular Auscultation: RRR Abdomen Auscultation/Inspection/Palpation: Normal bowel sounds, Soft, Non-distended, Tenderness (appropriate) and Other (extensive bruising at the distal incision, consistent with prior note) DIGITAL AD TRAFFICKER - Prog Note: Results Labs CBC & Chem 7: 09/09/20 04:44 09/09/20 04:44 DIGITAL AD TRAFFICKER - A/P (1) Post-operative state: Status: Acute Assessment and Plan: Ms. Nancy Simms has met all discharge goals as her pain is well controlled, she is voiding, passing flatus, tolerating PO, and ambulating without difficulty. I ordered MoM for her to get this morning to help her have a bowel movement before she goes home. Discharge order placed and plan for discharge this afternoon. Follow up in the office at the end of this week for staple removal. Assessment/Plan Procedure/Diagnosis: Procedures Operation Date: 09/08/20 08:40 Actual Procedures Side Surgeon p Oopherectomy laparoscopic CONVERTED TO OPEN Bilateral Lisha Mitul, MD Time Spent With Patient Time: Total time spent is greater than 50% in coordination of care (as documented) at patient's floor/unit and/or counseling patient: Time with patient: 15 - 24 minutes
[2020-09-11] MEDS: Ferrous Sulfate 300 MG/5 ML LIQUID PO (09:27)
[2020-09-11] MEDS: Milk of Magnesia 30 ML ORAL.SUSP PO (09:27)
--- NOTE | 2020-09-11 09:28 | PM.DS ---
DS: Providers Provider Date of Service: 09/11/20 Date of admission: 09/08/20 12:36 Primary care physician: Henri Freeman MD DS: Diagnosis Discharge Diagnosis (1) Post-operative state: Status: Acute DS: Medications Discharge Medications Home Medications: Home Medications Medication Instructions Recorded Confirmed calcium carbonate 500 mg calcium 500 mg PO DAILY 06/14/20 09/02/20 (1,250 mg) tablet cranberry 400 mg capsule 400 mg PO DAILY 06/14/20 09/02/20 estradiol VAGINAL 06/14/20 07/15/20 ferrous sulfate 325 mg (65 mg 325 mg PO DAILY 06/14/20 09/02/20 iron) tablet meclizine 12.5 mg tablet 12.5 mg PO DAILY PRN 06/14/20 09/02/20 nystatin 100,000 unit/gram topical TOPICAL BID 06/14/20 07/15/20 powder ondansetron HCl 4 mg tablet 4 mg PO Q6-8H PRN 06/14/20 09/02/20 sertraline 50 mg tablet 50 mg PO BEDTIME 06/14/20 09/02/20 vitamin B complex 1 tab PO DAILY 06/14/20 09/02/20 Previous Rx's Medication Instructions Recorded omeprazole 40 mg PO DAILY 14 Days #14 cap 08/27/20 sucralfate [Carafate] 5 ml PO TID 7 Days #105 ml 08/27/20 acetaminophen 650 mg PO Q8H #60 tab 09/07/20 estradiol 1 patch TRANSDERMAL 2XW #8 ea 09/07/20 ibuprofen 800 mg PO Q8H #60 tab 09/07/20 ondansetron 8 mg PO Q8H PRN #14 tab 09/07/20 docusate sodium 100 mg PO DAILY PRN #60 cap 09/11/20 hydromorphone 2 mg PO Q4H PRN #14 tab 09/11/20 DS: Summary Hospital Course Hospital Course: Ms. Nancy Simms presented to the hospital for scheduled laparoscopic bilateral oopherectomy. Her surgery was unable to be completed as planned and exploratory laparotomy was performed to confirm that now bowel injury had occurred during her laparoscopy; no bowel injury was found. She was admitted to the hospital for observation and pain management. She continued to receive IV pain medication on POD#1. Her butt catheter was removed and she was able to void, ambulate without difficulty, pass flatus, and tolerate PO. On POD#2, her pain medication was changed to PO. On POD#3, her pain continued to be well controlled on oral pain medication. She received MoM to help her have a BM as she complained of increased cramping and feeling like she needed to go but only passing flatus. She was discharged home in stable condition after having a BM, with plan to follow up in the office in one week for staple removal. Time Spent with Patient Time attestation: Total time spent providing and/or coordinating discharge services: Discharge coordination time: Less than 30 minutes Quality: AMI Clinical Trial Participant: No Physical Exam Vital Signs: Vital Signs: Last Vital Signs Temp 97.4 F 03/07/21 07:22 Pulse 64 //21 07:22 Resp 18 /07/21 07:22 BP 134/60 // 07:22 Pulse Ox 99 // 07:22 Body Mass Index 41.5 Const: General: cooperative Nutritional Appearance: obese morbidly obese Orientation/consciousness: patient oriented x3 Resp: Effort & Inspection: normal respiratory effort Auscultation: clear to auscultation bilaterally Cardio: Rate: regular rate Rhythm: regular rhythm Heart sounds: S1 normal heart sound present and S2 normal heart sound present GI: Inspection: Yes incision (midline vertical incision with paras intact, no erythema) Palpation (GI): Soft to palpation, Tenderness to palpation present (GI) and no guarding Auscultation: normal bowel sounds Neuro: General: patient oriented x3 Discharge Plan Discharge Patient Disposition: Home, Self-Care Referrals: Henri Freeman MD [Primary Care Provider] - 1 Week (Nurse will call you with a follow up appointment.) Discharge Medications: New ibuprofen 800 mg tablet 800 mg PO Q8H Qty: 60 RF: 1 acetaminophen 650 mg tablet extended release 650 mg PO Q8H Qty: 60 RF: 1 ondansetron 8 mg tablet,disintegrating 8 mg PO Q8H PRN (Reason: nausea and vomiting) Qty: 14 RF: 0 estradiol 0.05 mg/24 hr patch semiweekly 1 patch transdermal 2XW Qty: 8 RF: 11 hydromorphone 2 mg Tablet 2 mg PO Q4H PRN (Reason: pain) Qty: 14 RF: 0 docusate sodium 100 mg Capsule 100 mg PO DAILY PRN (Reason: Constipation) Qty: 60 RF: 0 Continued sucralfate [Carafate] 100 mg/mL suspension 5 ml PO TID 7 Days Qty: 105 RF: 0 omeprazole 40 mg capsule,delayed release(DR/EC) 40 mg PO DAILY 14 Days Qty: 14 RF: 0 estradiol 0.01 % (0.1 mg/gram) cream vaginal RF: 0 sertraline 50 mg tablet 50 mg PO BEDTIME RF: 0 nystatin 100,000 unit/gram powder topical BID RF: 0 ondansetron HCl 4 mg tablet 4 mg PO Q6-8H PRN (Reason: Nausea) RF: 0 cranberry 400 mg capsule 400 mg PO DAILY RF: 0 ferrous sulfate 325 mg (65 mg iron) tablet 325 mg PO DAILY RF: 0 calcium carbonate [Calcium 500] 500 mg calcium (1,250 mg) tablet 500 mg PO DAILY RF: 0 meclizine 12.5 mg tablet 12.5 mg PO DAILY PRN (Reason: Vertigo) RF: 0 vitamin B complex [B Complex-Vitamin B12] Tablet 1 tab PO DAILY RF: 0 Discharge Orders: Discharge Order (Routine); Ordered 09/11/20 Ordered By: Lisha Bauman Diet: advance to usual diet Activity on Discharge: As tolerated Activity Restrictions/Additional Instructions: Advance activity as tolerated. Advance to regular diet as tolerated. Keep the skin glue dry for 24hrs; after 24hrs, it is OK to shower. Call the office or present to the ER if you experience: severe pain that does not improve with medication; increasing redness around your incisions or drainage from your incisions that looks like pus; if you are vomiting and unable to keep anything down. Care Plan Goals: Return to regular activity and diet as tolerated. Health Concerns: Monitor for signs of infection. Plan of Treatment: Follow up in the office in one week for staple removal. Patient Instructions: Exploratory Laparotomy (DC)
--- NOTE | 2020-09-11 09:38 | MHC.CM.PN ---
PATIENT IS DISCHARGED HOME - SELF CARE. RN AWARE OF PLAN. FAMILY TO TRANSPORT.
[2020-09-11 11:37] VITALS: BP 125/57; PULSE 56; RESP 18; TEMP 36.9; O2SAT 97
--- NOTE | 2020-09-12 10:18 | HO.POSTANES ---
Post Anesthesia Evaluation Post Anesthesia Evaluation Vital Signs: Patient was seen on 09/09/20 at 730am on paper chart Anesthesia: General Endotracheal-GETA Mental Status: Awake Pain Control: Satisfactory Nausea/Vomiting: None Hydration: Adequate Anesthesia-Related Issues: No Anes. Related Issues
== END 2020-09-11 16:30 | disposition home or self-care (01) | DRG 513 ==
LOC: HO.SSSA 12:56 → HO.S3 13:05
PROVIDERS: Admitting Provider Obstetrics & Gynecology; PCP Internal Medicine; Visit Provider Obstetrics & Gynecology
PROC: 0UJ30ZZ Inspection of Ovary, Open Approach (ICD-10-PCS; CPT 58940; principal; 2020-09-08 08:40)
DX: N83.201 Unspecified ovarian cyst, right side (principal); K21.9 Gastro-esophageal reflux disease without esophagitis; K66.0 Peritoneal adhesions (postprocedural) (postinfection); N83.202 Unspecified ovarian cyst, left side; Z79.1 Long term (current) use of non-steroidal anti-inflammatories (NSAID); Z98.84 Bariatric surgery status; Z88.5 Allergy status to narcotic agent; Z79.899 Other long term (current) drug therapy
CPT/HCPCS: 36415; 71045; 74177; 80048; 80076; 83605; 83735; 84702; 85025; 87040; 87045; 87046; 87324; 87449; 87635; 96374; 96375; 99285; J0131; J1100; J1170; J1200; J1885; J2060; J2250; J2270; J2405; J3010; Q9967

== ENCOUNTER 2020-09-12 14:15 | Inpatient (IN) | payer OTHER, SELFPAY ==
--- NOTE | ~2020-09-12 | CT_ITS ---
EXAMINATION: CT ABDOMEN AND PELVIS WITH CONTRAST CLINICAL INFORMATION: AP s/p exploratory lap, eval for fluid collection/perf COMPARISON: 08/27/2020 CT scan TECHNIQUE: Multidetector volumetric imaging was performed from the superior aspect of the liver through the pubic symphysis following administration of 75 cc of Omnipaque intravenous contrast Sagittal and coronal reformatted images were obtained on the technologist workstation.. This CT examination was performed using dose optimization techniques as appropriate, variously including the following: *Automated exposure control *Adjustment of mA and/or kV according to patient size (this includes techniques or standardized protocols for targeted exams where dose is matched to indication/reason for exam; i.e. extremities or head) *Use of iterative reconstruction technique DLP: 1169 mGy-cm FINDINGS: LUNG BASES: The visualized lung bases are unremarkable. There is more thickness to the distal esophagus possibly representing mild esophagitis not well assessed otherwise. Postoperative changes are seen in the epigastrium. LIVER, GALLBLADDER, AND BILIARY TREE: The liver is normal in size, shape, and attenuation. No focal hepatic lesion or biliary ductal dilatation is present. Gallbladder surgically absent. PANCREAS: Unremarkable. SPLEEN: Unremarkable. ADRENAL GLANDS: Unremarkable. KIDNEYS AND URETERS: The kidneys are normal in size, shape, and attenuation. No hydronephrosis, hydroureter, or calculi seen. No perinephric stranding. BLADDER: Decompressed GASTROINTESTINAL TRACT: Colon is decompressed with scattered diverticula but no evidence for diverticulitis. Dilated loops of proximal small bowel are seen extending into the ileum with decompressed distal small bowel loops with a focal transition point in the right midabdomen with decompressed distal ileal loops after this transition point. ABDOMINAL WALL: Postoperative changes in the intra-abdominal wall from recent surgery LYMPHOVASCULAR STRUCTURES: No lymphadenopathy. The aorta is unremarkable. PELVIC VISCERA: Bilateral cystic changes within the adnexa are again noted. OSSEOUS STRUCTURES: Degenerative changes in the lower lumbar spine. CT/CT abdomen pelvis w con IMPRESSION: Recent postoperative changes. Dilatation to the duodenum, jejunum, and proximal ileal loops extending up to a focal transition point in the right midabdomen seen best on axial image 53/100 and coronal image 46/88. The small bowel distal to this area is decompressed as is the colon. This focal transition is more than I would typically expect just from ileus. Close clinical follow-up correlation would be recommended.
--- NOTE | ~2020-09-12 | XR_ITS ---
EXAMINATION: XR CHEST CLINICAL INFORMATION: Nasogastric tube placement COMPARISON: Chest x-ray 08/27/2020 TECHNIQUE: Frontal portable view of the chest was obtained. 11:27 PM FINDINGS: Nasogastric tube in stomach. No significant abnormality is noted involving the heart, lungs, mediastinum, bony thorax or soft tissues. XR/XR chest 1V IMPRESSION: Nasogastric tube within the stomach. There is no acute abnormality of the chest.
[2020-09-12 14:19] VITALS: BP 150/79; PULSE 84; RESP 20; TEMP 36.8; O2SAT 99; BMI 37.4
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
[2020-09-12 19:11] LABS: MANUAL DIFF FLAG NO
[2020-09-12 19:12] LABS: Basophils Percent Auto 0.3 % (0-2); Eosinophils Percent Auto 0.3 % (0-4); Hematocrit 38.6 % (37-47); Hemoglobin 13.1 g/dl (12.0-16.0); Imm Gran Abs Auto 0.03 X10*3/uL (0.00-0.03); Imm Gran Pct Auto 0.3 % (0.0-0.4); Lymphocytes Absolute Auto 0.7 X10*3/uL (1.2-4.9); Lymphocytes Percent Auto 6.1 % (20-40); Mean Corpuscular HGB Conc 33.9 g/dl (31.0-35.0); Mean Corpuscular Volume 88.5 fL (80-98); Mean Platelet Volume 9.9 fL (9.4-12.3); Monocytes Absolute Auto 0.5 X10*3/uL (0.1-1.2); Monocytes Percent Auto 4.7 % (2-11); Neutrophils Absolute Auto 10.2 X10*3/uL (2.0-8.3); Neutrophils Percent Auto 88.3 % (45-73); Platelet Count 310 X10*3/uL (160-400); Red Blood Count 4.36 X10*6/uL (4.20-5.50); Red Cell Distribution Width 11.9 % (11.0-16.0); White Blood Count 11.6 X10*3/uL (4.8-10.8)
[2020-09-12] MEDS: 0.9 % Sodium Chloride 2,000 ML 999 ML IV (19:12)
[2020-09-12] MEDS: ondansetron HCL 4 MG/2 ML VIAL IVPUSH (19:12)
--- NOTE | 2020-09-12 19:22 | PC.NURSE ---
patient a&ox3, currently vomiting, iv inserted, labs drawn, pt medicated per order, attempting to ask patient questions and she shook her head no then stated she can't answer right now.
[2020-09-12 19:37] LABS: Lactic Acid 1.1 mmol/L (0.5-2.0)
[2020-09-12 19:43] LABS: Alanine Aminotransferase 50 U/L (0-31); Albumin Level 4.2 g/dL (3.5-5.0); Alkaline Phosphatase 104 U/L (39-117); Anion Gap 19 (12-20); Aspartate Amino Transferase 28 U/L (5-31); Bilirubin Direct 0.2 mg/dL (0.0-0.5); Bilirubin Total 0.6 mg/dL (0.0-1.0); Blood Urea Nitrogen 10 mg/dL (9-16); Calcium 9.7 mg/dL (8.4-10.2); Carbon Dioxide 18 mmol/L (22-29); Chloride 107 mmol/L (96-108); Creatinine Clr Calc Pharmacy 100.6; Estimated Glomerular Filt Rate > 60; Glucose Random 165 mg/dL (60-115); Magnesium 1.9 mg/dL (1.6-2.6); Sodium 140 mmol/L (135-145); Total Protein 7.5 g/dL (6.5-8.0)
[2020-09-12] MEDS: diphenhydrAMINE HCL 50 MG/ML VIAL 25 MG IVPUSH (20:13)
[2020-09-12 20:35] VITALS: BP 151/72; PULSE 83; RESP 20; TEMP 36.7; O2SAT 99
[2020-09-12] MEDS: Morphine Sulfate 4 MG/ML CARTRIDGE IVPUSH (20:39)
[2020-09-12] MEDS: iohexoL 350 MG/ML 75 ML INFUS..BTL IV ×2 (21:23→21:47)
[2020-09-12] MEDS: LORazepam 2 MG/ML VIAL 1 MG IVPUSH (22:49)
[2020-09-12 23:01] LABS: COVID-19 Test Negative (Negative)
--- NOTE | 2020-09-12 23:11 | PC.NURSE ---
NG TUBE INSERTED -PT TOLERATED WELL
[2020-09-13] VITALS (7 sets, daily range): BP systolic 150–172; BP diastolic 76–93; PULSE 75–88; RESP 17–19; TEMP 36.4–37.3; O2SAT 96–99; BMI 37.4
[2020-09-13] MEDS: 0.9 % Sodium Chloride 1,000 ML 125 ML IVCONT ×3 (01:17→17:54)
[2020-09-13] MEDS: Morphine Sulfate 2 MG/ML CARTRIDGE IVPUSH (04:58)
[2020-09-13 06:53] LABS: Anion Gap 14 (12-20); Blood Urea Nitrogen 9 mg/dL (9-16); Calcium 8.5 mg/dL (8.4-10.2); Carbon Dioxide 20 mmol/L (22-29); Chloride 113 mmol/L (96-108); Creatinine Clr Calc Pharmacy 125.3; Estimated Glomerular Filt Rate > 60; Glucose Random 110 mg/dL (60-115); Potassium 3.9 mmol/L (3.3-5.1); Sodium 143 mmol/L (135-145)
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
[2020-09-13 12:05] LABS: CDIFF Ag Negative (Negative); CDiff Toxin Negative (Negative)
[2020-09-13 12:06] LABS: CDIFF Internal ctrl Dots and bkg OK (V)
--- NOTE | 2020-09-13 14:08 | PM.PNGS ---
Subjective Subjective Date of Service: 09/13/20 Interval history: History reviewed Patient came to the emergency room last night because of multiple episodes of diarrhea - Described as very watery, nonstop No significant abdominal pain Vomited in the ER Currently without any nausea Continues to have multiple water stools No significant abdominal pain Physical Exam Vital Signs: Vital Signs: Last Vital Signs Temp 97.5 F 09/13/20 11:07 Pulse 88 09/13/20 11:07 Resp 17 09/13/20 11:07 BP 150/76 H 09/13/20 11:07 Pulse Ox 98 09/13/20 11:07 Body Mass Index 37.4 Laboratory Results - last 24 hr 09/12/20 09/12/20 09/12/20 19:04 19:04 19:04 WBC 11.6 H RBC 4.36 D Hgb 13.1 D Hct 38.6 MCV 88.5 MCH 30.0 MCHC 33.9 RDW 11.9 Plt Count 310 D MPV 9.9 Immature Gran % (A uto) 0.3 Neut % (Auto) 88.3 H Lymph % (Auto) 6.1 L [place] % (Auto) 4.7 Eos % (Auto) 0.3 Baso % (Auto) 0.3 Lymph # (Auto) 0.7 L [place] # (Auto) 0.5 Eos # (Auto) 0.0 Baso # (Auto) 0.0 Abs Immat Gran (au to) 0.03 Absolute Neuts (au to) 10.2 H Absolute Nucleated RBC 0.000 Nucleated RBC % (a uto) 0.0 Sodium 140 Potassium 4.0 Chloride 107 Carbon Dioxide 18 L Anion Gap 19 BUN 10 Creatinine 0.81 Estim Creat Clear Calc 100.6 Estimated GFR > 60 Random Glucose 165 H D Lactic Acid 1.1 Calcium 9.7 D Magnesium 1.9 Total Bilirubin 0.6 Direct Bilirubin 0.2 AST 28 D ALT 50 H Alkaline Phosphata se 104 Total Protein 7.5 Albumin 4.2 C. difficile Toxin A&B C. difficile Antig en C. difficile Inter pret COVID-19 ([facility]) COVID-19 Clin Com 09/12/20 09/13/20 09/13/20 22:41 05:46 09:00 WBC RBC Hgb Hct MCV MCH MCHC RDW Plt Count MPV Immature Gran % (A uto) Neut % (Auto) Lymph % (Auto) [place] % (Auto) Eos % (Auto) Baso % (Auto) Lymph # (Auto) [place] # (Auto) Eos # (Auto) Baso # (Auto) Abs Immat Gran (au to) Absolute Neuts (au to) Absolute Nucleated RBC Nucleated RBC % (a uto) Sodium 143 Potassium 3.9 Chloride 113 H Carbon Dioxide 20 L Anion Gap 14 BUN 9 Creatinine 0.65 Estim Creat Clear Calc 125.3 Estimated GFR > 60 Random Glucose 110 Lactic Acid Calcium 8.5 D Magnesium Total Bilirubin Direct Bilirubin AST ALT Alkaline Phosphata se Total Protein Albumin C. difficile Toxin A&B Negative C. difficile Antig en Negative C. difficile Inter pret SEE NOTE COVID-19 ([facility]) Negative COVID-19 Clin Com See Note Const: Other: NG tube in place General: comfortable and no acute distress Resp: Effort & Inspection: normal respiratory effort Cardio: Rhythm: regular rhythm GI: Other: Soft, low midline incision healing well, no cellulitis, no guarding rebound, not distended Progress Note: A&P Assessment and plan (1) Ileus: Status: Acute Assessment and Plan: CT reviewed - diffuse dilatation of small bowel loops Clinically not obstructed Looks well Abdomen soft and benign Says her main complaint is her severe diarrhea C diff sent -negative Will check stool cultures as well Hopefully will be able to DC NG tube tomorrow Labs okay Seen and examined - agree with MURPHY Robin's H&P Discussed above with patient Fall Risk Details Current Medications: Current Medications Generic Name Dose Route Start Last Admin Trade Name Freq PRN Reason Stop Dose Admin Diphenhydramine HCl 25 mg 09/12/20 22:26 Diphenhydramine Hcl 50 Mg/Ml Vial IVPUSH Q6H PRN Itching Sodium Chloride 1,000 mls @ 125 mls/hr 09/12/20 22:30 09/13/20 08:55 Ns IVCONT 125 mls/hr .Q8H DEANDRE Administration Acetaminophen 1,000 mg in 100 mls @ 400 mls/hr 09/13/20 10:00 Ofirmev IV 09/14/20 04:14 Q6H PRN abdominal pain Ketorolac Tromethamine 15 mg 09/13/20 09:54 Ketorolac Tromethamine 15 Mg/Ml Vial IV Q6H PRN abdominal pain Morphine Sulfate 2 mg 09/12/20 22:20 09/13/20 04:58 Morphine Sulfate 2 Mg/Ml Cartridge IVPUSH 2 mg Q3H PRN Administration Pain, Moderate (Pain Scale 4-6 Morphine Sulfate 4 mg 09/12/20 22:20 Morphine Sulfate 4 Mg/Ml Cartridge IVPUSH Q3H PRN Pain, Severe (Pain Scale 7-10) Ondansetron HCl 4 mg 09/12/20 22:20 Ondansetron Hcl 4 Mg/2 Ml Vial IVPUSH Q4H PRN Nausea Sodium Chloride 3 ml 09/13/20 00:00 09/13/20 09:06 0.9 % Sodium Chloride Flush 3 Ml Syringe IVFLUSH Not Given QSHIFT DEANDRE Time Spent With Patient Time: Total time spent is greater than 50% in coordination of care (as documented) at patient's floor/unit and/or counseling patient: Time with patient: 15 - 24 minutes
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
[2020-09-14] MEDS: 0.9 % Sodium Chloride 1,000 ML 125 ML IVCONT ×2 (00:10→18:45)
[2020-09-14 04:00] VITALS: BP 156/93; PULSE 92; RESP 19; TEMP 36.4; O2SAT 97
[2020-09-14 07:18] VITALS: BP 171/77; PULSE 83; RESP 18; TEMP 37.7; O2SAT 99
--- NOTE | 2020-09-14 08:19 | P.PNGS_ITS ---
Subjective Subjective Date of Service: 09/14/20 <Tamra Robin PA-C - Last Filed: 09/14/20 08:22> 09/14/20 <Michael Hill MD - Last Filed: 09/14/20 09:34> Interval history: Feels better this morning. Denies abdominal pain. Continues to pass flatus and have loose stools. Denies nausea. Has been having cups of ice chips with NGT in place. <Tamra Robin PA-C - Last Filed: 09/14/20 08:22> Physical Exam Vital Signs: Vital Signs: Last Vital Signs Temp 99.9 F 09/14/20 07:18 Pulse 83 09/14/20 07:18 Resp 18 09/14/20 07:18 BP 171/77 H 09/14/20 07:18 Pulse Ox 99 09/14/20 07:18 Body Mass Index 37.4 <Tamra Robin PA-C - Last Filed: 09/14/20 08:22> Const: General: healthy appearing, comfortable, no acute distress and alert <Tamra Robin PA-C - Last Filed: 09/14/20 08:22> Orientation/consciousness: patient oriented x3 <Tamra Robin PA-C - Last Filed: 09/14/20 08:22> Eyes: Sclerae: sclerae normal <Tamra Robin PA-C - Last Filed: 09/14/20 08:22> Resp: Effort & Inspection: normal respiratory effort <Tamra Robin PA-C - Last Filed: 09/14/20 08:22> Cardio: Rate: regular rate <Tamra Robin PA-C - Last Filed: 09/14/20 08:22> GI: Inspection: Yes incision (clean) <DAVID Segundo Last Filed: 09/14/20 08:22> Palpation (GI): Soft to palpation and Tenderness to palpation present (GI) (mild, incisional) <DAVID Segundo Last Filed: 09/14/20 08:22> Percussion: Yes normal to percussion <DAVID Segundo Last Filed: 09/14/20 08:22> Auscultation: normal bowel sounds <Tamra Robin PA-C - Last Filed: 09/14/20 08:22> Skin: General skin exam: no rashes or lesions noted <Tamra Robin PA-C - Last Filed: 09/14/20 08:22> Neuro: General: patient oriented x3 <DAVID Segundo Last Filed: 09/14/20 08:22> Extrem: General: Yes no clubbing, cyanosis or edema <Tamra Robin PA-C - Last Filed: 09/14/20 08:22> Progress Note: A&P Assessment and plan (1) Ileus: Status: Acute <Tamra Robin PA-C - Last Filed: 09/14/20 08:22> Assessment and Plan: Improving. NGT has had only clear output and is minimal. She continu es to pass flatus and have loose stools. Abd exam- nondistended, incision clean, mild incisional tenderness. Will d/c NGT and start on clears. Strongly encouraged OOB/ambulation. C diff is negative, stool cultures pending. <Tamra Robin PA-C - Last Filed: 09/14/20 08:22> Diarrhea much improved Denies abdominal pain Very anxious Abdomen soft Incision clean and dry DC NG tube Okay to start clear liquids Seen and examined -agree with MURPHY Robin <Michael Hill MD - Last Filed: 09/14/20 09:34> (2) Post-operative state: Status: Acute <Tamra Robin PA-C - Last Filed: 09/14/20 08:22> Fall Risk Details Current Medications: Current Medications Generic Name Dose Route Start Last Admin Trade Name Freq PRN Reason Stop Dose Admin Diphenhydramine HCl 25 mg 09/12/20 22:26 Diphenhydramine Hcl 50 Mg/Ml Vial IVPUSH Q6H PRN Itching Sodium Chloride 1,000 mls @ 125 mls/hr 09/12/20 22:30 09/14/20 05:37 Ns IVCONT Not Given .Q8H DEANDRE Ketorolac Tromethamine 15 mg 09/13/20 09:54 Ketorolac Tromethamine 15 Mg/Ml Vial IV Q6H PRN abdominal pain Morphine Sulfate 2 mg 09/12/20 22:20 09/13/20 04:58 Morphine Sulfate 2 Mg/Ml Cartridge IVPUSH 2 mg Q3H PRN Administration Pain, Moderate (Pain Scale 4-6 Morphine Sulfate 4 mg 09/12/20 22:20 Morphine Sulfate 4 Mg/Ml Cartridge IVPUSH Q3H PRN Pain, Severe (Pain Scale 7-10) Ondansetron HCl 4 mg 09/12/20 22:20 Ondansetron Hcl 4 Mg/2 Ml Vial IVPUSH Q4H PRN Nausea Sodium Chloride 3 ml 09/13/20 00:00 09/14/20 00:03 0.9 % Sodium Chloride Flush 3 Ml Syringe IVFLUSH Not Given QSHIFT [facility] <Tamra Robin PA-C - Last Filed: 09/14/20 08:22> Time Spent With Patient Time: Total time spent is greater than 50% in coordination of care (as documented) at patient's floor/unit and/or counseling patient: <Tamra Robin PA-C - Last Filed: 09/14/20 08:22> Time with patient: 15 - 24 minutes <DAVID Segundo Last Filed: 09/14/20 08:22>
[2020-09-14] MEDS: 0.9 % Sodium Chloride Flush 3 ML SYRINGE IVFLUSH ×3 (10:36→21:27)
[2020-09-14 11:30] VITALS: BP 145/75; PULSE 77; RESP 19; TEMP 37.3; O2SAT 99
[2020-09-14 15:07] VITALS: BP 133/71; PULSE 78; RESP 20; TEMP 36.6; O2SAT 98
[2020-09-14 19:13] VITALS: BP 150/78; PULSE 88; RESP 20; TEMP 36.7; O2SAT 99
[2020-09-14 23:22] VITALS: BP 121/75; PULSE 73; RESP 18; TEMP 36.8; O2SAT 98
[2020-09-15] MEDS: 0.9 % Sodium Chloride 1,000 ML 125 ML IVCONT (02:43)
[2020-09-15 03:29] VITALS: BP 145/87; PULSE 82; RESP 18; TEMP 36.8; O2SAT 98
[2020-09-15 08:00] VITALS: BP 133/70; PULSE 75; RESP 18; TEMP 36.4; O2SAT 99
--- NOTE | 2020-09-15 08:30 | P.PNGS_ITS ---
Subjective Subjective Date of Service: 09/15/20 <Tamra Robin PA-C - Last Filed: 09/15/20 08:34> 09/15/20 <Michael Hill MD - Last Filed: 09/15/20 08:46> Interval history: Feels so-so this morning. Concerned about her persistent loose stools. She is having drainage from her midline incision and is concerned about getting up and out of bed continuously with diarrhea. She is tolerating liquids without N/V. <Tamra Robin PA-C - Last Filed: 09/15/20 08:34> Physical Exam Vital Signs: Vital Signs: Last Vital Signs Temp 97.6 F 09/15/20 08:00 Pulse 75 09/15/20 08:00 Resp 18 09/15/20 08:00 BP 133/70 09/15/20 08:00 Pulse Ox 99 09/15/20 08:00 Body Mass Index 37.4 <Tamra Robin PA-C - Last Filed: 09/15/20 08:34> Const: General: comfortable, no acute distress, well developed, alert and an xious <Tamra Robin PA-C - Last Filed: 09/15/20 08:34> Orientation/consciousness: patient oriented x3 <DAVID Segundo Last Filed: 09/15/20 08:34> Eyes: Sclerae: sclerae normal <Tamra Robin PA-C - Last Filed: 09/15/20 08:34> Resp: Effort & Inspection: normal respiratory effort <Tamra Robin PA-C - Last Filed: 09/15/20 08:34> GI: Other: some paras removed at inferior aspect and area probed, small amount of serous drainage released, erythema seemed to lighten following <DAVID Segundo Last Filed: 09/15/20 08:34> Inspection: No distended and Yes incision (some mild erythema surrounding paras at inferior aspect) <DAVID Segundo Last Filed: 09/15/20 08:34> Palpation (GI): Soft to palpation, Tenderness to palpation present (GI) (mild, incisional), no guarding, not rigid and No Rebound tenderness present <Tamra Robin PA-C - Last Filed: 09/15/20 08:34> Percussion: Yes normal to percussion <Tamra Robin PA-C - Last Filed: 09/15/20 08:34> Skin: General skin exam: no rashes or lesions noted <Tamra Robin PA-C - Last Filed: 09/15/20 08:34> Neuro: General: patient oriented x3 <DAVID Segundo Last Filed: 09/15/20 08:34> Extrem: General: Yes no clubbing, cyanosis or edema <DAVID Segundo Last Filed: 09/15/20 08:34> Progress Note: A&P Assessment and plan (1) Ileus: Status: Acute <Tamra Robin PA-C - Last Filed: 09/15/20 08:34> Assessment and Plan: Resolved. Loose stools continue. Tolerating clears. Abd exam benign, incision with some mild erythema at inferior aspect surrounding paras- some removed and area probed with release of some serous drainage. Likely from seroma but will continue to monitor. Dry dressing to incision as needed. C diff negative, stool cx normal to this point. Will advance to solid diet. Begin imodium. Likely home tomorrow. <Tamra Robin PA-C - Last Filed: 09/15/20 08:34> She remains very anxious with her loose stools No significant pain Abdomen remained soft, nondistended Incision healing well; small area with some serous drainage Tolerating clear liquids Advance diet Stool cultures normal so far Okay to ME home when she feels ready Seen and examined - agree with MURPHY Robin <Michael Hill MD - Last Filed: 09/15/20 08:46> (2) Post-operative state: Status: Acute <DAVID Segundo Last Filed: 09/15/20 08:34> Fall Risk Details Current Medications: Current Medications Generic Name Dose Route Start Last Admin Trade Name Freq PRN Reason Stop Dose Admin Diphenhydramine HCl 25 mg 09/12/20 22:26 Diphenhydramine Hcl 50 Mg/Ml Vial IVPUSH Q6H PRN Itching Ketorolac Tromethamine 15 mg 09/13/20 09:54 Ketorolac Tromethamine 15 Mg/Ml Vial IV Q6H PRN abdominal pain Loperamide HCl 2 mg 09/15/20 08:28 Loperamide Hcl 2 Mg Capsule PO Q4H PRN Loose Stool Morphine Sulfate 2 mg 09/12/20 22:20 09/13/20 04:58 Morphine Sulfate 2 Mg/Ml Cartridge IVPUSH 2 mg Q3H PRN Administration Pain, Moderate (Pain Scale 4-6 Morphine Sulfate 4 mg 09/12/20 22:20 Morphine Sulfate 4 Mg/Ml Cartridge IVPUSH Q3H PRN Pain, Severe (Pain Scale 7-10) Ondansetron HCl 4 mg 09/12/20 22:20 Ondansetron Hcl 4 Mg/2 Ml Vial IVPUSH Q4H PRN Nausea Sodium Chloride 3 ml 09/13/20 00:00 09/14/20 21:27 0.9 % Sodium Chloride Flush 3 Ml Syringe IVFLUSH 3 ml QSHIFT DEANDRE Administration <Tamra Robin PA-C - Last Filed: 09/15/20 08:34> Time Spent With Patient Time: Total time spent is greater than 50% in coordination of care (as documented) at patient's floor/unit and/or counseling patient: <Tamra Robin PA-C - Last Filed: 09/15/20 08:34> Time with patient: 15 - 24 minutes <Tamra Robin PA-C - Last Filed: 09/15/20 08:34>
[2020-09-15] MEDS: 0.9 % Sodium Chloride Flush 3 ML SYRINGE IVFLUSH ×3 (10:33→20:54)
[2020-09-15 12:00] VITALS: BP 134/82; PULSE 72; RESP 16; TEMP 36.4; O2SAT 99
[2020-09-15 15:52] VITALS: BP 136/62; PULSE 88; RESP 20; TEMP 37.1; O2SAT 98
[2020-09-15 19:04] VITALS: BP 119/76; PULSE 74; RESP 19; TEMP 36.4; O2SAT 98
[2020-09-15 23:25] VITALS: BP 138/65; PULSE 75; RESP 18; TEMP 36.8; O2SAT 98
[2020-09-16 04:00] VITALS: BP 165/96; PULSE 67; RESP 18; TEMP 36.6; O2SAT 98
[2020-09-16 04:50] VITALS: BP 148/88
--- NOTE | 2020-09-16 08:06 | PM.PNGS ---
Subjective Subjective Date of Service: 09/16/20 <Tamra Robin PA-C - Last Filed: 09/16/20 08:09> 09/16/20 <Michael Hill MD - Last Filed: 09/16/20 08:46> Interval history: Feels much better today. Stools have slowed down. OOB and ambulating. Tolerating solid diet. Ready to go home. <Tamra Robin PA-C - Last Filed: 09/16/20 08:09> Physical Exam Vital Signs: Vital Signs: Last Vital Signs Temp 97.8 F 09/16/20 04:00 Pulse 67 09/16/20 04:00 Resp 18 09/16/20 04:00 BP 148/88 H 09/16/20 04:50 Pulse Ox 98 09/16/20 04:00 Body Mass Index 37.4 <Tamra Robin PA-C - Last Filed: 09/16/20 08:09> Const: General: comfortable, no acute distress and alert <Tamra Robin PA-C - Last Filed: 09/16/20 08:09> Orientation/consciousness: patient oriented x3 <Tamra Robin PA-C - Last Filed: 09/16/20 08:09> Eyes: Sclerae: sclerae normal <Tamra Robin PA-C - Last Filed: 09/16/20 08:09> Resp: Effort & Inspection: normal respiratory effort <Tamra Robin PA-C - Last Filed: 09/16/20 08:09> GI: Inspection: Yes incision (erythema improved) <Tamra Robin PA-C - Last Filed: 09/16/20 08:09> Palpation (GI): Soft to palpation, nontender, no guarding and No Rebound tenderness present <DAVID Segundo Last Filed: 09/16/20 08:09> Skin: General skin exam: no rashes or lesions noted <Tamra Robin PA-C - Last Filed: 09/16/20 08:09> Neuro: General: patient oriented x3 <DAVID Segundo Last Filed: 09/16/20 08:09> Extrem: General: Yes no clubbing, cyanosis or edema <Tamra Robin PA-C - Last Filed: 09/16/20 08:09> Progress Note: A&P Assessment and plan (1) Ileus: Status: Acute <Tamra Robin PA-C - Last Filed: 09/16/20 08:09> Assessment and Plan: Resolved. Tolerating solid diet and loose BMs improved. VSS. Abd exam- NTND, soft, incision clean- erythema improved this am- probed by Dr. Hill this morning with large release of serosanguineous drainage. Likely had seroma. Patient ready for discharge to home today. F/u with Dr. Bauman in office next week. Dry dressings to incision as needed. Patient comfortable with plan. <Tamra Robin PA-C - Last Filed: 09/16/20 08:09> She feels much better today Tolerating diet well Bowel movements much improved Changed her dressings - probed the incision with Q-tips, no pus; there is note of serosanguineous drainage Consistent with subcutaneous fat necrosis; the patient had does have a pannus under incision Instructed on dry dressings She says she is ready to go home today Follow-up with Dr. Bauman Seen and examined -agree with MURPHY Robin <Michael Hill MD - Last Filed: 09/16/20 08:46> (2) Post-operative state: Status: Acute <Tamra Robin PA-C - Last Filed: 09/16/20 08:09> Fall Risk Details Current Medications: Current Medications Generic Name Dose Route Start Last Admin Trade Name Freq PRN Reason Stop Dose Admin Diphenhydramine HCl 25 mg 09/12/20 22:26 Diphenhydramine Hcl 50 Mg/Ml Vial IVPUSH Q6H PRN Itching Ketorolac Tromethamine 15 mg 09/13/20 09:54 Ketorolac Tromethamine 15 Mg/Ml Vial IV Q6H PRN abdominal pain Loperamide HCl 2 mg 09/15/20 08:28 Loperamide Hcl 2 Mg Capsule PO Q4H PRN Loose Stool Morphine Sulfate 2 mg 09/12/20 22:20 09/13/20 04:58 Morphine Sulfate 2 Mg/Ml Cartridge IVPUSH 2 mg Q3H PRN Administration Pain, Moderate (Pain Scale 4-6 Morphine Sulfate 4 mg 09/12/20 22:20 Morphine Sulfate 4 Mg/Ml Cartridge IVPUSH Q3H PRN Pain, Severe (Pain Scale 7-10) Ondansetron HCl 4 mg 09/12/20 22:20 Ondansetron Hcl 4 Mg/2 Ml Vial IVPUSH Q4H PRN Nausea Sodium Chloride 3 ml 09/13/20 00:00 09/15/20 20:54 0.9 % Sodium Chloride Flush 3 Ml Syringe IVFLUSH 3 ml QSHIFT DEANDRE Administration <Tamra Robin PA-C - Last Filed: 09/16/20 08:09> Time Spent With Patient Time: Total time spent is greater than 50% in coordination of care (as documented) at patient's floor/unit and/or counseling patient: <Tamra Robin PA-C - Last Filed: 09/16/20 08:09> Time with patient: less than 15 minutes <Tamra Robin PA-C - Last Filed: 09/16/20 08:09>
[2020-09-16] MEDS: 0.9 % Sodium Chloride Flush 3 ML SYRINGE IVFLUSH (09:00)
--- NOTE | 2020-09-16 09:49 | MHC.CM.PN ---
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
[2020-09-16 11:45] VITALS: BP 140/70; PULSE 67; RESP 17; TEMP 36.2; O2SAT 98
--- NOTE | 2020-09-16 12:35 | P.DS_ITS ---
DS: Providers Provider Date of Service: 09/16/20 Date of admission: 09/12/20 22:21 Primary care physician: Henri Freeman MD DS: Diagnosis Discharge Diagnosis (1) Ileus: Status: Acute DS: Medications Discharge Medications Home Medications: Home Medications Medication Instructions Recorded Confirmed calcium carbonate 500 mg calcium 500 mg PO DAILY 06/14/20 09/02/20 (1,250 mg) tablet cranberry 400 mg capsule 400 mg PO DAILY 06/14/20 09/02/20 estradiol See Rx Instructions .ROUTE .COMPLEX 06/14/20 09/12/20 ferrous sulfate 325 mg (65 mg 325 mg PO DAILY 06/14/20 09/02/20 iron) tablet nystatin 100,000 unit/gram topical 1 appl TOPICAL BID 06/14/20 09/12/20 powder sertraline 50 mg tablet 50 mg PO BEDTIME 06/14/20 09/12/20 vitamin B complex 1 tab PO DAILY 06/14/20 09/02/20 Previous Rx's Medication Instructions Recorded omeprazole 40 mg PO DAILY 14 Days #14 cap 08/27/20 sucralfate [Carafate] 5 ml PO TID 7 Days #105 ml 08/27/20 acetaminophen 650 mg PO Q8H #60 tab 09/07/20 estradiol 1 patch TRANSDERMAL 2XW #8 ea 09/07/20 ibuprofen 800 mg PO Q8H #60 tab 09/07/20 ondansetron 8 mg PO Q8H PRN #14 tab 09/07/20 docusate sodium 100 mg PO DAILY PRN #60 cap 09/11/20 hydromorphone 2 mg PO Q4H PRN #14 tab 09/11/20 DS: Summary Hospital Course Hospital Course: BRIEF HPI: Shireen Simms is a 50 year old female who presented to the ED yesterday with complaints of abdominal pain, nausea and vomiting and diarrhea. On 09/08/20, she was planned to have an elective laparoscopic bilateral oophorectomy for recurrent ovarian cysts, however, due to dense pelvic adhesions this procedure was aborted and the exploratory laparoscopy was converted to an exploratory laparotomy due to concern for viscus injury during laparoscopic port placement. There was no evidence of any viscus injury and the patient was closed. The patient was admitted post operatively for pain control, had an uncomplicated recovery course and was discharged to home on 09/10/20. She reports at that time she was feeling fairly well with good pain control, tolerating solid food and was having solid bowel movements. However, later that day she had multiple episodes of loose stools which persisted. She then developed nausea and anorexia and her PO intake was poor. She presented to the ED on Saturday due to the nausea and diarrhea where she had multiple episodes of vomiting and developed abdominal pain. She has been passing flatus. In the ED, work up included a CT scan of the abdomen/pelvis which showed dilated loops of small bowel with a possible transition point. Admission was requested. She reports she began to feel a little better in the ED after receiving two doses of an antiemetic. The NGT was therefore placed and only a small amount was drained. She continues to have loose stools. She denies fevers, chills, sick contacts. HOSPITAL COURSE: The patient was admitted to the surgical service for further treatment. It was thought she had an ileus from the post op state or narcotic use as opposed to an SBO as clinically she did not appear to be obstructed as she has continued to have loose stools throughout this time and her abdomen is not distended. Conservative management was continued with NGT for decompression, IVF, analgesics and antiemetics as needed. C diff and stool cultures were also ordered given her loose stools. The patient had an uncomplicated hospital stay. Her NGT output remained clearish in nature and was scanty and was therefore removed. She was started on clear liquids. She was ambulated. Her C diff was negative and stool cultures demonstrated normal fallon so imodium treatment was initiated for her diarrhea. She was then advanced to a solid diet. She felt overall improved. Her incision did have some erythema and some paras were removed and area probed with release of serosanguineous drainage, consistent with a seroma. The erythema lightened and improved. On the day of discharge, she was tolerating a solid diet without N/V or abdominal pain. Her loose stools were improved. Her abdomen was benign. Her vitals were stable and she felt ready for discharge. she was discharged to home on 09/16/20 in stable condition. She is to follow up with Dr. Bauman in the office in 1 week. Status at Discharge Functional status at discharge: independent ambulation Overall status at discharge: patient is progressing back to baseline Time Spent with Patient Time attestation: Total time spent providing and/or coordinating discharge services: Discharge coordination time: Less than 30 minutes Physical Exam Vital Signs: Vital Signs: Last Vital Signs Temp 97.2 F 09/16/20 11:45 Pulse 67 09/16/20 11:45 Resp 17 09/16/20 11:45 BP 140/70 H 09/16/20 11:45 Pulse Ox 98 09/16/20 11:45 Body Mass Index 37.4 Const: General: comfortable, no acute distress and alert Orientation /consciousness: patient oriented x3 Eyes: Sclerae: sclerae normal Resp: Effort & Inspection: normal respiratory effort Cardio: Rate: regular rate GI: Inspection: No distended and Yes incision (pale erythema, improved) Palpation (GI): Soft to palpation, nontender, no guarding, not rigid and No Rebound tenderness present Percussion: Yes normal to percussion Skin: General skin exam: no rashes or lesions noted Neuro: General: patient oriented x3 Extrem: General: Yes no clubbing, cyanosis or edema DS: Data Data Completed and Pending Labs on day of discharge: Preliminary micro results at discharge 09/12/20 19:04 Blood Culture - Preliminary Blood - Venous No growth after 48 hours. 09/12/20 19:05 Blood Culture - Preliminary Blood - Venous No growth after 48 hours. Discharge Plan Discharge Patient Disposition: Home, Self-Care Referrals: Henri Freeman MD [Primary Care Provider] - 1 Week (Please call and make a follow up appointment.) Lisha Bauman MD [Physician] - 1 Week Discharge Medications: Continued ibuprofen 800 mg tablet 800 mg PO Q8H Qty: 60 RF: 1 acetaminophen 650 mg tablet extended release 650 mg PO Q8H Qty: 60 RF: 1 ondansetron 8 mg tablet,disintegrating 8 mg PO Q8H PRN (Reason: nausea and vomiting) Qty: 14 RF: 0 estradiol 0.05 mg/24 hr patch semiweekly 1 patch transdermal 2XW Qty: 8 RF: 11 hydromorphone 2 mg Tablet 2 mg PO Q4H PRN (Reason: pain) Qty: 14 RF: 0 sucralfate [Carafate] 100 mg/mL suspension 5 ml PO TID 7 Days Qty: 105 RF: 0 omeprazole 40 mg capsule,delayed release(DR/EC) 40 mg PO DAILY 14 Days Qty: 14 RF: 0 estradiol 0.01 % (0.1 mg/gram) cream See Rx Instructions .ROUTE .COMPLEX RF: 0 sertraline 50 mg tablet 50 mg PO BEDTIME RF: 0 nystatin 100,000 unit/gram powder 1 appl topical BID RF: 0 cranberry 400 mg capsule 400 mg PO DAILY RF: 0 ferrous sulfate 325 mg (65 mg iron) tablet 325 mg PO DAILY RF: 0 calcium carbonate [Calcium 500] 500 mg calcium (1,250 mg) tablet 500 mg PO DAILY RF: 0 vitamin B complex [B Complex-Vitamin B12] Tablet 1 tab PO DAILY RF: 0 Held docusate sodium 100 mg Capsule 100 mg PO DAILY PRN (Reason: Constipation) Qty: 60 RF: 0 Hold Instructions: Resume on 09/21/20. Hold for diarrhea Discharge Orders: Discharge Order (Routine); Ordered 09/16/20 Ordered By: Tamra Robin Diet: advance to usual diet Activity on Discharge: No heavy lifting Stand Alone Forms: Patient Portal Discharge page Activity Restrictions/Additional Instructions: Dry dressing to incisions while draining. No heavy lifting. Care Plan Goals: Return to baseline health and activity following recovery period. Health Concerns: S/p exploratory laparotomy; post op ileus Plan of Treatment: F/u with Dr. Bauman upon discharge
== END 2020-09-16 15:36 | disposition home or self-care (01) | DRG 247 ==
LOC: HO.ED 22:16 → HO.EDOVER 23:59 → HO.S3 09-13 00:36
PROVIDERS: Nurse Practitioner Family; Physician Assistant Surgical; Surgery; Admitting Provider Surgery; Emergency Provider Internal Medicine; PCP Internal Medicine; Visit Provider Surgery
DX: K56.7 Ileus, unspecified (principal); L76.34 Postprocedural seroma of skin and subcutaneous tissue following other procedure; K21.9 Gastro-esophageal reflux disease without esophagitis; Z20.822 Contact with and (suspected) exposure to COVID-19; Z98.84 Bariatric surgery status; Z79.899 Other long term (current) drug therapy
CPT/HCPCS: 36415; 71045; 74177; 80048; 80076; 83605; 83735; 85025; 87040; 87045; 87046; 87324; 87449; 87635; 96374; 96375; 99285; J1200; J2060; J2270; J2405; Q9967

== ENCOUNTER → 2020-09-23 10:37 | Outpatient (BNVA) | payer OTHER, SELFPAY | PROVIDERS: PCP Internal Medicine; Visit Provider Obstetrics & Gynecology ==

== ENCOUNTER 2021-03-02 08:27 | Outpatient (REF) | payer OTHER, SELFPAY ==
[2021-03-02 11:21] LABS: Glucose Urine UA NEG (NEG); Leukocyte Esterase Urine NEG (NEG); Nitrite Urine NEG (NEG); Specific Gravity - Urine >= 1.030 (1.005-1.025); Urine Blood 1+ (NEG); Urine Ketones NEG (NEG); Urine Protein NEG (NEG-TRACE)
[2021-03-02 11:24] LABS: Appearance Urine CLEAR; Color Urine YELLOW
[2021-03-02 11:56] LABS: Bacteria Urine 2+ /LPF; Squamous Epithelial Cell Urine 2+ /LPF; WBC Urine 0 /HPF (0-4)
[2021-03-02 12:05] LABS: Anion Gap 10 (12-20); Blood Urea Nitrogen 18 mg/dL (9-16); Calcium 9.5 mg/dL (8.4-10.2); Carbon Dioxide 28 mmol/L (22-29); Chloride 107 mmol/L (96-108); Estimated Glomerular Filt Rate > 60; Potassium 4.7 mmol/L (3.3-5.1); Sodium 140 mmol/L (135-145)
[2021-03-02 12:10] LABS: Creatinine Urine 199.59 mg/dL; Protein/Creatinine Ratio, Ur 0.04 (<0.2); Total Protein Urine Random 8 mg/dL (<12)
== END 2021-03-02 08:28 | disposition home or self-care (01) ==
LOC: HO.HMGCLDS 08:27
PROVIDERS: PCP Internal Medicine; Visit Provider Internal Medicine Hypertension Specialist
DX: R31.9 Hematuria, unspecified (principal)
CPT/HCPCS: 36415; 80051; 81001; 82310; 82565; 84156; 84520

== ENCOUNTER 2021-03-24 10:41 | Outpatient (REF) | payer OTHER, SELFPAY ==
[2021-03-24 17:38] LABS: Urine Cytology See Pathology rpt
== END 2021-03-24 10:42 | disposition home or self-care (01) ==
LOC: HO.LNP 10:41
PROVIDERS: PCP Internal Medicine
DX: R31.9 Hematuria, unspecified (principal); N39.0 Urinary tract infection, site not specified
CPT/HCPCS: 88112

== ENCOUNTER 2021-04-05 09:48 | Outpatient (REF) | payer OTHER, SELFPAY ==
--- NOTE | ~2021-04-05 | US_ITS ---
EXAMINATION: US RETROPERITONEAL LIMITED (RENAL ONLY) CLINICAL INFORMATION: Hematuria, unspecified. COMPARISON: CT abdomen and pelvis 09/12/2020. Renal ultrasound 03/20/2019. Ultrasound abdomen complete 10/22/2012. TECHNIQUE: Real-time imaging of the kidneys. FINDINGS: RIGHT KIDNEY: 11.9 x 3.7 x 5.1 cm (SAG x AP x TRV). The kidney is normal in size, contour, and echogenicity. There is mild malrotation. Renal cortical thickness is normal. No calculi or focal parenchymal lesions. No hydronephrosis. LEFT KIDNEY: 10.5 x 4.6 x 6.1 cm (SAG x AP x TRV). The kidney is normal in size, contour, and echogenicity. Renal cortical thickness is normal. No calculi or focal parenchymal lesions. No hydronephrosis. US/US renal BI IMPRESSION: The right kidney appears slightly malrotated anteriorly. Otherwise bilateral kidney ultrasound appears unremarkable.
== END 2021-04-05 09:49 | disposition home or self-care (01) ==
LOC: HO.US 09:48
DX: R31.9 Hematuria, unspecified (principal)
CPT/HCPCS: 76775

== ENCOUNTER → 2021-05-08 10:38 | Outpatient (BNVA) | payer OTHER, SELFPAY | PROVIDERS: PCP Internal Medicine; Visit Provider Advanced Practice Midwife ==

== ENCOUNTER → 2021-07-14 09:11 | Outpatient (BNVA) | payer OTHER, SELFPAY | PROVIDERS: PCP Internal Medicine ==

== ENCOUNTER 2021-09-06 10:42 | Outpatient (REF) | payer OTHER, SELFPAY ==
--- NOTE | ~2021-09-06 | MM_ITS ---
EXAMINATION: MM SCREENING DIGITAL BREAST TOMOSYNTHESIS, BILATERAL CLINICAL INFORMATION: Screening. Asymptomatic. The lifetime risk of breast cancer based on the Tyrer-Cuzick Model is 6%. COMPARISON: Mammography: 08/02/2020, 07/27/2019, 07/14/2018 TECHNIQUE: Digital breast tomosynthesis is performed in both the craniocaudal and mediolateral oblique views along with computer-aided detection (CAD). Synthesized 2D images are generated from the tomosynthesis. Additional exaggerated right CC view is provided. FINDINGS: The breasts are almost entirely fatty (ACR BI-RADS breast composition Category a). There are no significant masses, abnormal calcifications, or other abnormalities. Background stromal and fibroglandular densities are stable. No developing density. No architectural abnormality or significant change from prior studies. MM/MM tomosynthesis screening BI IMPRESSION: No mammographic evidence of malignancy. ASSESSMENT: BI-RADS 1: Negative RECOMMENDATION: Routine annual mammography screening. This patient's information was entered into a reminder system with a target due date for their next mammogram.
== END 2021-09-06 10:43 | disposition home or self-care (01) ==
LOC: HO.MAMMO 10:42
PROVIDERS: Visit Provider Internal Medicine
DX: Z12.31 Encounter for screening mammogram for malignant neoplasm of breast (principal)
CPT/HCPCS: 77063; 77067

== ENCOUNTER → 2022-07-26 13:23 | Outpatient (BNVA) | payer OTHER, SELFPAY | PROVIDERS: PCP Internal Medicine; Visit Provider Nurse Practitioner Family | DX: N39.0 Urinary tract infection, site not specified (principal); R31.29 Other microscopic hematuria | CPT/HCPCS: 51798 ==

== ENCOUNTER 2022-07-26 17:22 | Outpatient (REF) | payer OTHER, SELFPAY ==
[2022-07-26 17:24] LABS: Urine Cytology See Pathology rpt
== END 2022-07-26 17:23 | disposition home or self-care (01) ==
LOC: HO.LNP 17:22
PROVIDERS: Visit Provider Nurse Practitioner Family
DX: R31.9 Hematuria, unspecified (principal)
CPT/HCPCS: 88112

== ENCOUNTER 2022-09-10 09:46 | Outpatient (REF) | payer OTHER, SELFPAY ==
--- NOTE | ~2022-09-10 | MM_ITS ---
EXAMINATION: MM SCREENING DIGITAL BREAST TOMOSYNTHESIS, BILATERAL CLINICAL INFORMATION: Screening. Asymptomatic. The lifetime risk of breast cancer based on the Tyrer-Cuzick Model is 6%. COMPARISON: Mammography: 09/06/2021, 08/02/2020, 07/27/2019 TECHNIQUE: Digital breast tomosynthesis is performed in both the craniocaudal and mediolateral oblique views along with computer-aided detection (CAD). Synthesized 2D images are generated from the tomosynthesis. Additional right CC view is provided. FINDINGS: The breasts are almost entirely fatty (ACR BI-RADS breast composition Category a). Background stromal markings are normal. No developing density or architectural abnormality. There are no significant masses, abnormal calcifications, or other abnormalities. The axilla are unremarkable. The skin contours are smooth. No significant changes. MM/MM tomosynthesis screening BI IMPRESSION: No mammographic evidence of malignancy. ASSESSMENT: BI-RADS 1: Negative RECOMMENDATION: Routine annual mammography screening. This patient's information was entered into a reminder system with a target due date for their next mammogram.
== END 2022-09-10 09:47 | disposition home or self-care (01) ==
LOC: HO.MAMMO 09:46
PROVIDERS: PCP Internal Medicine; Visit Provider Internal Medicine
DX: Z12.31 Encounter for screening mammogram for malignant neoplasm of breast (principal)
CPT/HCPCS: 77063; 77067

== ENCOUNTER → 2022-10-26 10:34 | Outpatient (BNVA) | payer OTHER, SELFPAY | PROVIDERS: PCP Internal Medicine; Visit Provider Advanced Practice Midwife | DX: Z13.89 Encounter for screening for other disorder (principal) ==

== ENCOUNTER 2022-11-15 10:28 | Outpatient (REF) | payer OTHER, SELFPAY ==
--- NOTE | ~2022-11-15 | US_ITS ---
EXAMINATION: US PELVIS CLINICAL INFORMATION: Pelvic and perineal pain; history of prior hysterectomy in 2018. COMPARISON: CT abdomen and pelvis dated 321; MRI pelvis dated 06/30/2020; pelvic ultrasound dated 02/22/2020. TECHNIQUE: Ultrasound of the pelvis is performed using both transabdominal and transvaginal transducers along with Doppler. Transvaginal imaging is performed due to inadequate visualization transabdominally. FINDINGS: Uterus: The uterus is surgically absent. Adnexa: Both ovaries are visualized. There is normal color flow to the adnexa. There is no ovarian torsion. There is no pelvic ascites or fluid collection. Right ovary measures 4.2 x 2.0 x 1.4 cm, volume 6.2 mL. 1.2 x 1.5 x 1.1 cm and 1.6 x 1.2 x 1.0 cm benign, simple dominant follicles are noted. Left ovary measures 6.9 x 6.0 x 6.7 cm, volume 145.2 mL. A 6.0 x 6.7 x 5.5 cm mildly complex cyst is seen with fine septation. This shows no mural nodularity or color Doppler flow. On the MRI pelvis dated 06/30/2020, this measured 5.3 x 4.0 x 3.6 cm. An additional 1.4 x 1.2 x 1.3 cm benign, simple dominant follicle is noted. US/US pelvic and transvaginal IMPRESSION: 1. A 6.0 x 6.7 x 5.5 cm mildly complex cyst with fine septation is redemonstrated. This shows mild increase from prior examinations. Gynecology evaluation and management are recommended. A minimum, continued annual ultrasound evaluation is recommended. 2. There are further benign, simple dominant follicles. 3. The uterus is surgically absent.
== END 2022-11-15 10:29 | disposition home or self-care (01) ==
LOC: HO.US 10:28
PROVIDERS: PCP Internal Medicine; Visit Provider Advanced Practice Midwife
DX: R10.2 Pelvic and perineal pain (principal); Z87.42 Personal history of other diseases of the female genital tract
CPT/HCPCS: 76830; 76856

== ENCOUNTER 2022-11-29 08:06 | Outpatient (REF) | payer OTHER, SELFPAY ==
[2022-11-29 10:21] LABS: Carcinoembryonic Antigen < 1.73 ng/mL
[2022-12-01 12:39] LABS: CA-125 6 U/mL (<35); Carbohydrate Antigen 19-9 19 U/mL (<34)
== END 2022-11-29 08:07 | disposition home or self-care (01) ==
LOC: HO.LAB 08:06
PROVIDERS: PCP Internal Medicine; Visit Provider Advanced Practice Midwife
DX: R10.2 Pelvic and perineal pain (principal); N83.299 Other ovarian cyst, unspecified side
CPT/HCPCS: 36415; 82378; 86301; 86304

== ENCOUNTER 2023-01-28 13:11 | Outpatient (AMB) | payer OTHER, SELFPAY ==
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
== END 2023-01-28 14:06 | disposition home or self-care (01) ==
PROVIDERS: Visit Provider Nurse Practitioner Family
DX: R31.29 Other microscopic hematuria (principal); N39.0 Urinary tract infection, site not specified
CPT/HCPCS: 99213

== ENCOUNTER 2023-01-28 13:11 | Outpatient (REF) | payer OTHER, SELFPAY ==
[2023-01-28 16:57] LABS: Urine Cytology See Pathology rpt
== END 2023-01-28 13:12 | disposition home or self-care (01) ==
LOC: HO.LNP 13:11
PROVIDERS: Visit Provider Nurse Practitioner Family
DX: R31.29 Other microscopic hematuria (principal); N39.0 Urinary tract infection, site not specified
CPT/HCPCS: 51798; 88112

== ENCOUNTER 2023-07-31 09:20 | Outpatient (REF) | payer OTHER, SELFPAY | END 2023-07-31 09:21 | disposition home or self-care (01) | LOC: HO.LNP 09:20 | PROVIDERS: PCP Internal Medicine; Visit Provider Nurse Practitioner Family | DX: N39.0 Urinary tract infection, site not specified (principal); R31.29 Other microscopic hematuria | CPT/HCPCS: 51798; 81003; 87086; 87088; 87186 ==

== ENCOUNTER 2023-07-31 09:20 | Outpatient (AMB) | payer OTHER, SELFPAY ==
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
== END 2023-07-31 09:59 | disposition home or self-care (01) ==
PROVIDERS: PCP Internal Medicine; Visit Provider Nurse Practitioner Family
DX: R31.29 Other microscopic hematuria (principal); N39.0 Urinary tract infection, site not specified; Z13.9 Encounter for screening, unspecified
CPT/HCPCS: 99214

== ENCOUNTER 2023-09-17 08:45 | Outpatient (REF) | payer OTHER, SELFPAY | END 2023-09-17 08:46 | disposition home or self-care (01) | LOC: HO.MAMMO 08:45 | PROVIDERS: PCP Internal Medicine; Visit Provider Internal Medicine | DX: Z12.31 Encounter for screening mammogram for malignant neoplasm of breast (principal) | CPT/HCPCS: 77063; 77067 ==

== ENCOUNTER → 2023-09-17 09:00 | Outpatient (BNV) | payer OTHER, SELFPAY | PROVIDERS: PCP Internal Medicine; Visit Provider Radiology Diagnostic Radiology | DX: Z12.31 Encounter for screening mammogram for malignant neoplasm of breast (principal) | CPT/HCPCS: 77063; 77067 ==

== ENCOUNTER 2023-10-29 09:17 | Outpatient (AMB) | payer OTHER, SELFPAY ==
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
== END 2023-10-29 10:08 | disposition home or self-care (01) ==
PROVIDERS: PCP Internal Medicine; Visit Provider Nurse Practitioner Family
DX: R31.29 Other microscopic hematuria (principal); N39.0 Urinary tract infection, site not specified; Z13.9 Encounter for screening, unspecified
CPT/HCPCS: 99213

== ENCOUNTER 2023-10-29 09:17 | Outpatient (REF) | payer OTHER, SELFPAY ==
[2023-10-29 16:42] LABS: Urine Cytology See Pathology rpt
== END 2023-10-29 09:18 | disposition home or self-care (01) ==
LOC: HO.LNP 09:17
PROVIDERS: PCP Internal Medicine; Visit Provider Nurse Practitioner Family
DX: R31.29 Other microscopic hematuria (principal); N39.0 Urinary tract infection, site not specified
CPT/HCPCS: 51798; 81003; 88112

== ENCOUNTER 2024-06-25 12:39 | Outpatient (REF) | payer OTHER, SELFPAY ==
[2024-06-25 16:18] LABS: Urine Cytology See Pathology rpt
== END 2024-06-25 12:40 | disposition home or self-care (01) ==
LOC: HO.LNP 12:39
PROVIDERS: PCP Internal Medicine; Visit Provider Nurse Practitioner Family
DX: N39.0 Urinary tract infection, site not specified (principal); R31.29 Other microscopic hematuria
CPT/HCPCS: 51798; 81003; 88112

== ENCOUNTER 2024-06-25 12:39 | Outpatient (AMB) | payer OTHER, SELFPAY ==
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
== END 2024-06-25 13:19 | disposition home or self-care (01) ==
PROVIDERS: PCP Internal Medicine; Visit Provider Nurse Practitioner Family
DX: R31.29 Other microscopic hematuria (principal); N39.0 Urinary tract infection, site not specified; Z13.9 Encounter for screening, unspecified
CPT/HCPCS: 99213

== ENCOUNTER 2024-09-22 09:05 | Outpatient (REF) | payer OTHER, SELFPAY ==
--- OUTSIDE RECORDS SUMMARY | 2024-09-22 09:44 | XMS_ITS | Clinical Summary ---
Author Organization [facility] Address [address] [place] [address] Phone Care Team Providers Care Regional Planner Name Role Phone Henri Freeman MD Primary Care Provider [phone] Allergies Active Allergy Reactions Criticality Noted Date Comments Oxycodone-Acetaminophen Other (see comments) Medications Multiple Vitamin (multivitamin) capsule Take 1 capsule by mouth 1 (one) time each day Active Cranberry 400 MG capsule Take 1 capsule by mouth 1 (one) time each day Active calcium carbonate (OS-BISHNU) 1250 (500 Ca) MG tablet Take 1 tablet by mouth 1 (one) time each day Active ferrous sulfate 325 (65 Fe) MG tablet Take 1 tablet by mouth 1 (one) time each day Active LORazepam (ATIVAN) 0.5 MG tablet Take 1 tablet by mouth if needed Active meclizine (ANTIVERT) 25 MG tablet Take 25 mg by mouth if needed Active omeprazole OTC (PriLOSEC OTC) 20 MG EC tablet Take 1 tablet by mouth 1 (one) time each day Active ondansetron (ZOFRAN) 4 MG tablet Take 1 tablet by mouth if needed Active sertraline (ZOLOFT) 50 MG tablet Take 75 mg by mouth 1 (one) time each day Active b complex vitamins capsule Take 1 capsule by mouth 1 (one) time each day Active Active Problems Problem Noted Date Diagnosed Date Anxiety 06/06/2023 06/06/2023 Pelvic pain 06/06/2023 06/06/2023 Pelvic mass 06/06/2023 06/06/2023 Seasonal asthma 06/06/2023 06/06/2023 History of gynecological disorder 08/17/2021 Overview (06/06/2023): Patient on??09-08-20 patient was originally scheduled to have laparoscopic oophorectomy for ovarian cysts. During the procedure it revealed patient had multiple adhesions. ??Ultimately patient had exploratory laparotomy to rule out bowel injury. ??Patient did not have her ovaries??removed. Recurrent urinary tract infection 08/17/2021 06/06/2023 Overview (06/06/2023): Follows with [facility] [place] annual basis. Blood in urine 03/14/2021 Chronic kidney disease stage 1 03/14/2021 Seasonal allergy 07/04/2018 06/06/2023 Vertigo 07/16/2017 06/06/2023 Overview (06/06/2023): Meclizine and vestibular therapy Obesity 06/03/2017 06/06/2023 Overview (06/06/2023): S/p sleeve gastrectomy Mar 2016 (Dr. Ulloa) Lumbosacral spondylosis 08/07/2010 06/06/20 23 Degeneration of lumbar intervertebral disc 08/0706/06/2023 Prolapsed lumbar intervertebral disc 08/07/2010 06/06/2023 Gastroesophageal reflux disease 03/22/2009 06/06/2023 Overview (06/06/2023): S/p hiatal hernia repair July 2017 (Dr. Ulloa) Depressive disorder 03/22/2009 06/06/2023 Immunizations Name Administration Dates Next Due Influenza, Unspecified 03/22/2022,2020,03/24/2020,02/20/2019,01/2018,05/04/2015,07/31/2012,03/22/2009 Moderna SARS-COV-2 06/25/2021,12/09/2020, 021 PPD Test 05/21/2018 Pneumococcal Polysaccharide 03/11/2021, 0,04/08/2016 Shingrix 08/30/2022 Td 07/08/2003 Tdap 09/04/2013 Family History Medical History Relation Comments Diabetes Father Heart disease Father Hypertension Father Kidney disease Father Cancer Mother bladder Relation Status Comments Father Alive Mother Social History Tobacco Use Types Packs/Day Years Used Date Smoking Tobacco: Never Smokeless Tobacco: Never Alcohol Use Standard Drinks/Week Comments No 0 (1 standard drink = 0.6 oz pur e alcohol) Comments Unknown Sex and Gender Information Value Date Recorded Sex Assigned at Not on file Legal Sex Female 5:12 PM EST Gender Identity Not on file Sexual Orientation Not on file Last Filed Vital Signs Vital Sign Reading Time Taken Comments Blood Pressure 142/85 06/06/2023 3:25 PM EST Pulse 68 06/06/2023 3:25 PM EST Temperature - - Respiratory Rate - - Oxygen Saturation 98% 06/06/2023 3:25 PM EST Inhaled Oxygen Concentration - - Weight 108 kg (237 lb) 06/06/2023 3:25 PM EST Height 165.1 cm (5' 5 ) 05/03/2022 2:38 PM EDT Body Mass Index 39.44 05/03/2022 2:38 PM EDT Plan of Treatment Health Maintenance Due Date Last Done Comments Breast Cancer Screening 1972 Hepatitis B Vaccine (1 of 3 - 19+ 3-dose series) 1991 Colorectal Cancer Screening: Annual FOBT 2021 Colorectal Cancer Screening: Colonoscopy 2021 Colorectal Cancer Screening: Sigmoidoscopy 2021 Pneumococcal Vaccine: Pediat rics (0 to 5 Years) and At-Risk Patients (6 to 64 Years) (3 of 3 - PCV) 03/11/2022 03/11/2021, 03/24/2020, 04/08/2016 Influenza Vaccine (#1) 2024 2, 03/11/2021, 03/24/2020, Additional history exists Insurance [address] [place] [address] Care Teams Regional Planner Relationship Specialty Start Date End Date Henri Freeman MD PCP - General 07/18/20
--- OUTSIDE RECORDS SUMMARY | 2024-09-22 09:44 | XMS_ITS | Clinical Summary ---
Author Organization [address] Address [address] [place] [phone] Phone Care Team Providers Care Children'S Lunchroom Supervisor Name Role Phone Henri Freeman MD Primary Care Provider [phone] Allergies Active Allergy Reactions Criticality Noted Date Comments Oxycodone-Acetaminophen Nausea And Vomiting,Other Medium 03/06/2013 Medications vitamin B complex (VITAMINS B COMPLEX ORAL) Take by mouth. Active calcium carbonate/jolie min D3 (CALCIUM 600 + D,3, ORAL) Take by mouth. Active calcium carbonate (OS-BISHNU) 1,250 mg (500 mg elemental calcium) tablet Take 1 tablet (1,250 mg total) by mouth 1 (one) time each day. Active cranberry extract 50 mg tablet,chewabl e Chew 1 tablet 1 (one) time each day. Active ondansetron (ZOFRAN) 4 mg tablet Take 1 tablet (4 mg total) by mouth as needed. 2 Active LORazepam (ATIVAN) 0.5 mg tablet Take 1 tablet (0.5 mg total) by mouth every 8 (eight) hours if needed for anxiety. Max Daily Amount: 1.5 mg 30 tablet 5 Active meclizine (ANTIVERT) 25 mg tablet Take 1 tablet (25 mg total) by mouth 3 (three) times a day if needed for dizziness. 90 tablet 1 5 026 Active meloxicam (MOBIC) 7.5 mg tablet TAKE 1 TABLET BY MOUTH EVERY DAY NEEDED FOR PAIN 30 tablet 4 5 Active omeprazole (PriLOSEC) [address] capsule TAKE 1 CAPSULE BY MOUTH EVERY DAY 90 capsule 1 5 Active sertraline (ZOLOFT) 25 mg tablet Take 1 tablet (25 mg total) by mouth 1 (one) time each day. TAKE IN ADDITION WITH 50 MG TABLET FOR A TOTAL OF 75 MG DAILY 90 tablet 1 5 Active sertraline (ZOLOFT) 50 mg tablet Take 1 tablet (50 mg total) by mouth 1 (one) time each day. TAKE IN ADDITION WITH 25 MG TABLET FOR A TOTAL OF 75 MG DAILY 90 tablet 1 5 Active omeprazole (PriLOSEC) [address] capsule Take 1 capsule (20 mg total) by mouth 1 (one) time each day. 4 025 Discontinued sertraline (ZOLOFT) 25 mg tablet TAKE 1 TABLET BY MOUTH DAILY. TAKE WITH 50MG TABLET FOR TOTAL OF 75MG DAILY 025 Discontinued Active Problems Problem Noted Date Diagnosed Date Recurrent urinary tract infection 08/17/2021 Overview (09/12/2023): Follows with [facility] urology annual basis. Follows with [facility] urology annual basis. Esophageal dysphagia 04/11/2020 Seasonal allergies 07/04/2018 Vertigo 07/16/2017 Overview (09/12/2023): Meclizine and vestibular therapy Meclizine and vestibular therapy Severe obesity (BMI 35.0-39.9) with comorbidity 06/03/2017 Overview (09/12/2023): S/p sleeve gastrectomy Mar 2016 (Dr. Ulloa) Obesity 06/03/2017 Overview (09/12/2023): S/p sleeve gastrectomy Mar 2016 (Dr. Ulloa) Degeneration of lumbar intervertebral disc 08/07 Lumbosacral spondylosis 08/07/2010 Gastroesophageal reflux disease 03/22/2009 Overview (09/12/2023): S/p hiatal hernia repair July 2017 (Dr. Ulloa) S/p hiatal hernia repair July 2017 (Dr. Ulloa) Depressive disorder 03/22/2009 Encounters Date Type Department Care Team Description 07/17/2024 8:30 AM EST Office Visit Adult Medicine [address] [phone] Henri Freeman MD Depressive disorder (Primary Dx); Gastroesophageal reflux disease without esophagitis; Vertigo from Last 3 Months Immunizations Name Administration Dates Next Due Influenza, Unspecified 03/22/2022,2020,03/24/2020,02/20,04/13/2018,05/04/2015,07/31/2012 ,03/22/2009 Moderna SARS-CoV-2 COVID-19, mRNA, LNP-S, preservative free 06/25/2021 PPD Test 05/21/2018 Pneumococcal polysaccharide 23 valent (Pneumovax 23) 2yo and older 03/11/2021,03/24/2020,04/08/2016 Td Tetanus diptheria (Tdvax) 7yo and older 07/08/2003 Tdap Tetanus diptheria acell ular pertussis (Boostrix; Adacel) 7yo and older 09/04/2013 Zoster recombinant (Shingrix ) 19yo and older 08/30/2022 Surgical History Surgery Date Site/Laterality Comments SECTION 2008 PROCEDURE: HISTORICAL ; COMMENT: 1991; 2008. GASTRIC BYPASS 03/2016 PROCEDURE: GASTRIC BYPASS FOR OBESIT; COMMENT: sleeve CHOLECYSTECTOMY 12/16/2012 PROCEDURE: HISTORICAL CHOLECYSTECTOMY HYSTERECTOMY 04/2018 PROCEDURE: HISTORICAL HYSTERECTOMY UPPER GASTROINTESTINAL ENDOSCOPY 08/27/2018 PROCEDURE: MA UPPER GI ENDOSCOPY PERFORMED; COMMENT: LA grade D reflux esophagitis; start PPI rx. UPPER GASTROINTESTINAL ENDOSCOPY 01/14/2020 PROCEDURE: MA UPPER GI ENDOSCOPY PERFORMED; COMMENT: Small hiatal hernia, no esophagitis, possible Martinez's esophagus, biopsies: No Barretts. OTHER SURGICAL HISTORY 09/08/2020 PROCEDURE: MA UNLISTED LAPAROSCOPY PROCEDURE OVIDUCT OVARY; COMMENT: Bilateral ovarian cysts, extensive pelvic adhesions. Exploratory laparoscopy converted to exploratory laparotomy Medical History Medical History Date Comments Obstructive sleep apnea 05/21/2016 DX:Obstr uctive sleep apnea; COMMENT: 06/2017 Home Sleep Study did not reveal sleep apnea. CAREN resolved with weight loss after bariatric surgery. Seasonal allergies 07/04/2018 DX:Seasonal a llergies Vertigo 07/16/2017 DX:Vertigo; COMM ENT: Meclizine and vestibular therapy Obesity (BMI 30-39.9) 06/03/2017 DX:Obesity (BMI 30-39.9); COMMENT: S/p sleeve gastrectomy Mar 2016 (Dr. Ulloa) Lumbar disc herniation 08/07/2010 DX:Lumbar disc herniation GERD (gastroesophageal reflux disease) 03/22/2009 DX:GERD (gastroesophageal reflux disease); COMMENT: S/p hiatal hernia repair July 2017 (Dr. Ulloa) Depression 03/22/2009 DX:Depression Degenerative disc disease, lumbar 08/07/2010 DX:Degenerative disc disease, lumbar Esophageal dysphagia DX:Esophage al dysphagia Fe deficiency anemia 04/11/2020 DX:Fe defic iency anemia History of COVID-19 08/17/2021 DX:History o f COVID-19; COMMENT: DX: 07/2021 Family History Medical History Relation Name Comments Diabetes Father ALS, HTN Coronary artery disease Maternal Grandfather Other cancer Mother bladder cancer Lung cancer Paternal Grandfather Heart attack Paternal Grandmother Relation Name Status Comments Father Maternal Grandfather Mother Paternal Grandfather Paternal Grandmother Social History Tobacco Use Types Packs/Day Years Used Date Smoking Tobacco: Never Smokeless Tobacco: Never Tobacco Cessation:Counseling Given: Not Answered Alcohol Use Standard Drinks/Week Comments No 0 (1 standard drink = 0.6 oz pur e alcohol) Housing Instability Answer Date Recorde d Are you worried that in the next 2 months you may not have stable housing? Patient declined 07/17/2024 Food Access & Nutrition Answer Date Rec orded Do you have access to a vari ety of food including fruits and vegetables? Yes 07/17/2024 Health Literacy Answer Date Recorded How often do you need to hav e someone help you when you read instructions, pamphlets, or other written material from your doctor or pharmacy? Never 07/17/2024 Caregiver: How often do you need to have someone help you when you read instructions, pamphlets, or other written material from your doctor or pharmacy? Not on file 07/17/2024 Financial Risk Answer Date Recorded How hard is it for you to pa y for the very basics like food, housing, medical care, and air conditioning / heating? Somewhat hard 07/17/2024 Transportation Answer Date Recorded Has the lack of transportati on kept you from meetings, work, or from getting things needed for daily living? No Has the lack of transportati on kept you from medical appointments or from getting medications? No 07/17/2024 Social Isolation Answer Date Recorded How often do you feel lonely or isolated from th ose around you? Rarely 07/17/2024 Food Risk Answer Date Recorded Within the past 12 months we worried whether our food would run out before we got money to buy more. Sometimes true 025 Within the past 12 months th e food we bought just didn't last and we didn't have money to get more. Sometimes true 07/17/2024 Dependent Care Answer Date Recorded Do you need help finding or paying for care for your loved ones. For example, child support case officer or elderly care for an older adult? No 07/17/2024 Education Answer Date Recorded Do you think completing more education or training, like finishing a GED, going to college, or learning a trade, would be helpful for you? No 07/17/2024 Employment and Income Answer Date Recor ded During the last four weeks, have you been actively looking for work? No 07/17/2024 Living Situation Answer Date Recorded What is your living situation? 0 07/17/2024 Comments Unknown Sex and Gender Information Value Date Recorded Sex Assigned at Not on file Legal Sex Female 10:05 PM EST Gender Identity Not on file Sexual Orientation Not on file Obstetrics History Last Filed Vital Signs Vital Sign Reading Time Taken Comments Blood Pressure 120/70 07/17/2024 8:32 AM EST Pulse 66 07/17/2024 8:32 AM EST Temperature 36.3 ??C (97.3 ??F) 07/17/2024 8:32 AM ES T Respiratory Rate 16 07/17/2024 8:32 AM EST Oxygen Saturation 96% 07/17/2024 8:32 AM EST Inhaled Oxygen Concentration - - Weight 118 kg (261 lb) 07/17/2024 8:32 AM EST Height 165.1 cm (5' 5 ) 07/17/2024 8:32 AM EST Body Mass Index 43.43 07/17/2024 8:32 AM EST Plan of Treatment Upcoming Encounters Date Type Department Care Team (Late st Contact Info) Description 01/13/2025 9:00 AM EDT Office Visit Adult Medicine [address] [phone] Laura Siddiqui PA [address] [place] [id number] Health Maintenance Due Date Last Done Comments Breast Cancer Screening 1972 Hepatitis B Vaccines (1 of 3 - 19+ 3-dose series) 1991 Colorectal Cancer Screening: Colonoscopy 06/09/2022 HIV Screening 06/09/2022 Hepatitis C Screening 06/09/2022 Pneumococcal Vaccine: 50+ Years (2 of 2 - PCV) 2022 03/11/2021, 03/24/2020, 04/08/2016 Zoster Vaccines (2 of 2) 10/25/2022 08/30/2022 DTaP,Tdap,and Td Vaccines (3 - Td or Tdap) 09/04/2023 09/04/2013, 07/08/2003 COVID-19 Vaccine ( season) 2024 06/25/2021, 12/09/2020, 11/11/2020 Depression Screening 07/17/2025 07/17/2024 Social Influencers of Health Screening 07/17/2025 07/17/2024 Cervical Cancer Screening: Pap Smear 10/10/2025 10/10/2022 Cholesterol Screening (Lipid Panel) 01/12/2029 01/13/2024, 01/15/2023 Pneumococcal Vaccine: Pediatrics (0 to 5 Years) and At-Risk Patients (6 to 64 Years) Aged Out 03/11/2021, 03/24/2020, 04/08/2016 No longer eligible based on patient's age to complete this topic Influenza Vaccine Completed 03/16/2024, , 03/22/2022, Additional history exists HIB Vaccines Aged Out No longer eligi ble based on patient's age to complete this topic HPV Vaccines Aged Out No longer eligi ble based on patient's age to complete this topic Hepatitis A Vaccines Aged Out No long er eligible based on patient's age to complete this topic IPV Vaccines Aged Out No longer eligi ble based on patient's age to complete this topic MMR Vaccines Aged Out No longer eligi ble based on patient's age to complete this topic Meningococcal ACWY Vaccine Aged Out N o longer eligible based on patient's age to complete this topic Meningococcal B Vacine Aged Out No lo nger eligible based on patient's age to complete this topic RSV Immunization Patients Under 20 months Aged Out No longer eligible based on patient's age to complete this topic Varicella Vaccines Aged Out No longer eligible based on patient's age to complete this topic Procedures Procedure Name Priority Date/Time Associated Diagnosis Comments LIPID PANEL Routine 01/15/2023 from Last 3 Months or Most Recently Relevant to Health Maintenance Results * Lipid panel (01/15/2023) Triglycerides 82 mg/dL Cholesterol 195 mg/dL HDL 62 mg/dL LDL Cholesterol 117 mg/dL Blood Venous blood specimen / Unknown us Historical Provider LAB BLOOD ORDERABLES Lilo l Result from Last 3 Months or Most Recently Relevant to Health Maintenance Insurance [facility] Care Teams Children'S Lunchroom Supervisor Relationship Specialty Start Date End Date Henri Freeman MD [address] [place] [id number] PCP - General 01/17/09
== END 2024-09-22 09:06 | disposition home or self-care (01) ==
LOC: HO.MAMMO 09:05
PROVIDERS: Visit Provider Internal Medicine
DX: Z12.31 Encounter for screening mammogram for malignant neoplasm of breast (principal)
CPT/HCPCS: 77063; 77067

== ENCOUNTER → 2024-09-22 09:15 | Outpatient (BNV) | payer OTHER, SELFPAY | PROVIDERS: Visit Provider Internal Medicine | DX: Z12.31 Encounter for screening mammogram for malignant neoplasm of breast (principal) | CPT/HCPCS: 77063; 77067 ==

== ENCOUNTER 2024-12-24 08:39 | Outpatient (AMB) | payer OTHER, SELFPAY ==
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
--- OUTSIDE RECORDS SUMMARY | 2024-12-24 09:01 | XMS_ITS | Clinical Summary ---
Author Organization [facility] Address [address] [place] [address] Phone Care Team Providers Care Custom Home Installer Name Role Phone Henri Freeman MD Primary Care Provider [phone] Allergies Active Allergy Reactions Criticality Noted Date [...] of gynecological disorder 08/17/2021 Overview (06/06/2023): Patient on 3-4-21 patient was originally scheduled to have laparoscopic oophorectomy for ovarian cysts. During the procedure it revealed patient had multiple adhesions. Ultimately patient had exploratory laparotomy to rule out bowel injury. Patient did not have her ovaries removed. Recurrent urinary tract infection 08/17/2021 06/06/2023 Overview (06/06/2023): Follows with [facility] urology annual basis. Blood in urine 03/14/2021 Chronic kidney disease stage 1 03/14/2021 Seasonal allergy 07/04/2018 06/06/2023 Vertigo 07/16/2017 06/06/2023 Overview (06/06/2023): Meclizine and vestibular therapy Obesity 06/03/2017 06/06/2023 Overview (06/06/2023): S/p sleeve gastrectomy Mar 2016 (Dr. Ulloa) Lumbosacral spondylosis 08/07/2010 06/06/20 Degeneration of lumbar intervertebral disc 08/0706/06/2023 Prolapsed lumbar intervertebral disc 08/07/2010 06/06/2023 Gastroesophageal reflux disease 03/22/2009 06/06/2023 Overview (06/06/2023): S/p hiatal hernia repair July 2017 (Dr. Ulloa) Depressive disorder 03/22/2009 06/06/2023 Immunizations Immunization Administration Dates Next Due Influenza, Unspecified 03/22/2022,2020,03/24/2020,02/20/2019,01/2018,05/04/2015,07/31/2012,03/22/2009 Moderna SARS-COV-2 06/25/2021,12/09/2020, 021 PPD Test 05/21/2018 Pneumococcal Polysaccharide 03/11/2021,,04/08/2016 Shingrix 08/30/2022 Td 07/08/2003 Tdap 09/04/2013 Family [...] Colorectal Cancer Screening: Sigmoidoscopy 2021 Pneumococcal Vaccine: 50+ Ye ars (3 of 3 - PCV) 03/11/2022 03/11/2021, 03/24/2020, 04/08/2016 Influenza Vaccine (Season Ended) 2025 03/22/2022, 03/11/2021, 03/24/2020, Additional history exists Pneumococcal Vaccine: Peds ( 0 to 5 Years) and At-Risk Patients (6 to 49 Years) Discontinued 03/11/2021, 03/24/2020, 04/08/2016 Insurance [facility] Care Teams Custom Home Installer Relationship Specialty Start Date End Date Henri Freeman MD PCP - General 07/18/20
== END 2024-12-24 09:26 | disposition home or self-care (01) ==
LOC: HO.HUSH 08:39
PROVIDERS: PCP Internal Medicine; Visit Provider Nurse Practitioner Family
DX: N39.0 Urinary tract infection, site not specified (principal); R31.29 Other microscopic hematuria; R32 Unspecified urinary incontinence; Z13.9 Encounter for screening, unspecified
CPT/HCPCS: 99213; G2211

== ENCOUNTER 2024-12-24 08:39 | Outpatient (REF) | payer OTHER, SELFPAY ==
[2024-12-24 17:51] LABS: Urine Cytology See Pathology rpt
== END 2024-12-24 08:40 | disposition home or self-care (01) ==
LOC: HO.LAB 08:39
PROVIDERS: PCP Internal Medicine; Visit Provider Nurse Practitioner Family
DX: R31.29 Other microscopic hematuria (principal); N39.0 Urinary tract infection, site not specified
CPT/HCPCS: 81003; 88112

== ENCOUNTER 2025-02-05 08:21 | Outpatient (AMB) | payer OTHER, SELFPAY ==
--- OUTSIDE RECORDS SUMMARY | 2025-02-05 08:30 | XMS_ITS | Clinical Summary ---
Author Organization [facility] Address [address] [place] [address] Phone Care Team Providers Care Transformer Repairer Name Role Phone Henri Freeman MD Primary Care Provider [phone] Allergies Active Allergy Reactions Criticality Noted Date [...] infection 08/17/2021 06/06/2023 Overview (06/06/2023): [place] [facility] [place] annual basis. Blood in urine 03/14/2021 [...] 03/11/2022 03/11/2021, 03/24/2020, 04/08/2016 Influenza Vaccine (#1) 2025 2, 03/11/2021, 03/24/2020, Additional history exists Pneumococcal Vaccine: Peds ( 0 to 5 Years) and At-Risk Patients (6 to 49 Years) Discontinued 03/11/2021, 03/24/2020, 04/08/2016 Insurance [facility] Care Teams Transformer Repairer Relationship Specialty Start Date End Date Henri Freeman MD PCP - General 07/18/20
--- OUTSIDE RECORDS SUMMARY | 2025-02-05 08:31 | XMS_ITS ---
Author Name [facility] Organization Unknown Care Team Organization Name Specialty Phone Email Start Date End Da te [facility] LUIS ACUÑA Primary Care [email or web address] 10/09/2022 4 [facility] MARY MCKEON Primary Care 05/15/2022 4
--- OUTSIDE RECORDS SUMMARY | 2025-02-05 08:31 | XMS_ITS | Clinical Summary ---
Author Organization [address] Address [address] [place] [phone] Phone Care Team Providers Care Neon Glass Blower Name Role Phone Henri Freeman MD Primary Care Provider Allergies Active Allergy Reactions Criticality Noted Date Comments Oxycodone-Acetaminophen Nausea And Vomiting,Other Medium 03/06/2013 Medications vitamin B complex (VITAMINS B COMPLEX ORAL) Take by mouth. Active calcium carbonate/vitam in D3 (CALCIUM 600 + D,3, ORAL) Take by mouth. Active calcium carbonate (OS-BISHNU) 1,250 mg (500 mg elemental calcium) tablet Take 1 tablet (1,250 mg total) by mouth 1 (one) time each day. Active cranberry extract 50 mg tablet,chewable Chew 1 tablet 1 (one) time each day. Active ondansetron (ZOFRAN) 4 mg tablet Take 1 tablet (4 mg total) by mouth as needed. 06/08/2022 Active LORazepam (ATIVAN) 0.5 mg tablet Take 1 tablet (0.5 mg total) by mouth every 8 (eight) hours if needed for anxiety. Max Daily Amount: 1.5 mg 30 tablet 07/17/2024 Active meloxicam (MOBIC) 7.5 mg tablet TAKE 1 TABLET BY MOUTH EVERY DAY NEEDED FOR PAIN 30 tablet 4 08/14/2024 Active omeprazole (PriLOSEC) [address] capsule TAKE 1 CAPSULE BY MOUTH EVERY DAY 90 capsule 1 08/28/2024 Active sertraline (ZOLOFT) 25 mg tablet Take 1 tablet (25 mg total) by mouth 1 (one) time each day. TAKE IN ADDITION WITH 50 MG TABLET FOR A TOTAL OF 75 MG DAILY 90 tablet 1 08/28/2024 Active sertraline (ZOLOFT) 50 mg tablet Take 1 tablet (50 mg total) by mouth 1 (one) time each day. TAKE IN ADDITION WITH 25 MG TABLET FOR A TOTAL OF 75 MG DAILY 90 tablet 1 08/28/2024 Active meclizine (ANTIVERT) 25 mg tablet TAKE 1 TABLET BY MOUTH 3 TIMES A DAY IF NEEDED FOR DIZZINESS. 90 tablet 1 12/23/2024 Active Active Problems Problem Noted Date Diagnosed Date Recurrent urinary tract infection 08/17/2021 Overview (09/12/2023): Follows with [facility] urology annual basis. Follows with [facility] urology annual basis. Esophageal dysphagia 04/11/2020 Seasonal allergies 07/04/2018 Vertigo 07/16/2017 Overview (09/12/2023): Meclizine and vestibular therapy Meclizine and vestibular therapy Severe obesity (BMI 35.0-39. 9) with comorbidity (CMS/HCC V24, CMS/HCC V28) 06/03/2017 Overview (09/12/2023): S/p sleeve gastrectomy Mar 2016 (Dr. Ulloa) Obesity 06/03/2017 Overview (09/12/2023): S/p sleeve gastrectomy Mar 2016 (Dr. Ulloa) Degeneration of lumbar intervertebral disc 08/07 Lumbosacral spondylosis 08/07/2010 Gastroesophageal reflux disease 03/22/2009 Overview (09/12/2023): S/p hiatal hernia repair July 2017 (Dr. Ulloa) S/p hiatal hernia repair July 2017 (Dr. Ulloa) Depressive disorder 03/22/2009 Encounters Date Type Department Care Team Description 01/13/2025 9:39 AM EDT - 01/13/2025 11:59 PM EDT Hospital Encounter [address] [phone] Chronic pain of left thumb Discharge Disposition: Home or Self Care 01/13/2025 9:00 AM EDT Office Visit Adult Medicine [address] [phone] Laura Siddiqui PA Routine history and physical examination of adult (Primary Dx); Gastroesophageal reflux disease without esophagitis; Depressive disorder; Chronic pain of left thumb from Last 3 Months Immunizations Name Administration [...] HISTORICAL HYSTERECTOMY UPPER GASTROINTESTINAL ENDOSCOPY 08/27/2018 PROCEDURE: [place] UPPER GI ENDOSCOPY PERFORMED; COMMENT: LA grade D reflux esophagitis; start PPI rx. UPPER GASTROINTESTINAL ENDOSCOPY 01/14/2020 PROCEDURE: SC UPPER GI ENDOSCOPY PERFORMED; COMMENT: Small hiatal hernia, no esophagitis, possible Martinez's esophagus, biopsies: No Barretts. OTHER SURGICAL HISTORY 09/08/2020 PROCEDURE: SC UNLISTED LAPAROSCOPY PROCEDURE OVIDUCT OVARY; COMMENT: Bilateral [...] Family History Medical History Relation Name Comments Hypertension Brother 1 Stroke Brother 1 Hypertension Brother 2 Diabetes Father ALS, HTN Coronary artery disease Maternal Grandfather Other cancer Mother bladder cancer Lung cancer Paternal Grandfather Heart attack Paternal Grandmother POTS Sister Relation Name Status Comments Brother 1 Brother 2 Alive Father Maternal Grandfather Mother Paternal Grandfather Paternal Grandmother Sister Social History Tobacco Use Types Packs/Day Years Used Date Smoking Tobacco: Never Smokeless Tobacco: Never Tobacco Cessation:Counseling Given: Not Answered Alcohol Use Standard Drinks/Week Comments No 0 (1 standard drink = 0.6 oz pur e alcohol) Housing Instability Answer Date Recorde d Are you worried that in the next 2 months you may not have stable housing? No 01/22/2025 Food Access & Nutrition Answer Date Rec orded Do you have access to a vari ety of food including fruits and vegetables? Yes 01/22/2025 Access to Healthcare Answer Date Record ed Within the last 3 months, ho w many times did you visit the emergency department for your medical care? 0 01/22/2025 Health Literacy Answer Date Recorded How often do you need to hav e someone help you when you read instructions, pamphlets, or other written material from your doctor or pharmacy? Rarely 01/22/2025 Caregiver: How often do you need to have someone help you when you read instructions, pamphlets, or other written material from your doctor or pharmacy? Not on file 01/22/2025 Financial Risk Answer Date Recorded How hard is it for you to pa y for the very basics like food, housing, medical care, and air conditioning / heating? Somewhat hard 01/22/2025 Transportation Answer Date Recorded Has the lack of transportati on kept you from meetings, work, or from getting things needed for daily living? No Has the lack of transportati on kept you from medical appointments or from getting medications? No 01/22/2025 Social Isolation Answer Date Recorded How often do you feel lonely or isolated from those around you? Sometimes 01/22/2025 Food Risk Answer Date Recorded Within the past 12 months we worried whether our food would run out before we got money to buy more. Sometimes true 025 Within the past 12 months th e food we bought just didn't last and we didn't have money to get more. Never true 01/22/2025 Dependent Care Answer Date Recorded Do you need help finding or paying for care for your loved ones. For example, child support officer or elderly care for an older adult? No 01/22/2025 Education Answer Date Recorded Do you think completing more education or training, like finishing a GED, going to college, or learning a trade, would be helpful for you? No 01/22/2025 Employment and Income Answer Date Recor ded During the last four weeks, have you been actively looking for work? No 01/22/2025 Living Situation Answer Date Recorded What is your living situation? 0 01/22/2025 Comments Unknown Sex and Gender Information Value Date Recorded Sex Assigned at Not on file Legal Sex Female 10:05 PM EST Gender Identity Not on file Sexual Orientation Not on file Occupation Industry Job Start Date Job End Date [employer] Not on file Not on file Not on fi le Obstetrics History Last Filed Vital Signs Vital Sign Reading Time Taken Comments Blood Pressure 120/68 01/13/2025 8:40 AM EDT Pulse 73 01/13/2025 8:40 AM EDT Temperature 35.9 C (96.7 F) 01/13/2025 8:40 AM EDT Respiratory Rate 16 01/13/2025 8:40 AM EDT Oxygen Saturation 98% 01/13/2025 8:40 AM EDT Inhaled Oxygen Concentration - - Weight 115 kg (253 lb 11.2 oz) 01/13/2025 8:40 A M EDT Height 165.1 cm (5' 5 ) 01/13/2025 8:40 AM EDT Body Mass Index 42.22 01/13/2025 8:40 AM EDT Plan of Treatment Upcoming Encounters Date Type Department Care Team (Late st Contact Info) Description 08/12/2025 9:30 AM EST Office Visit Adult Medicine [address] [phone] Henri Freeman MD [address] [place] [phone] Health Maintenance Due Date Last Done Comments Breast Cancer Screening 1972 Hepatitis B Vaccines (1 of 3 - 19+ 3-dose series) 1991 Colorectal Cancer Screening: Colonoscopy 06/09/2022 Pneumococcal Vaccine: 50+ Years (2 of 2 - PCV) 2022 03/11/2021, 03/24/2020, 04/08/2016 Zoster Vaccines (2 of 2) 10/25/2022 08/30/2022 DTaP,Tdap,and Td Vaccines (3 - Td or Tdap) 09/04/2023 09/04/2013, 07/08/2003 COVID-19 Vaccine ( season) 2024 06/25/2021, 12/09/2020, 11/11/2020 Influenza Vaccine (#1) 2025 , 03/09/2023, 03/22/2022, Additional history exists Cervical Cancer Screening: Pap Smear 10/10/2025 10/10/2022 Social Influencers of Health Screening 01/22/2026 01/22/2025 Cholesterol Screening (Lipid Panel) 01/13/2030 01/13/2025, 01/13/2024, 01/15/2023 Depression Screening Completed 01/22/2025 HIB Vaccines Aged Out No longer eligi ble based on patient's age to complete this topic HIV Screening Discontinued HPV Vaccines Aged Out No longer eligi ble based on patient's age to complete this topic Hepatitis A Vaccines Aged Out No long er eligible based on patient's age to complete this topic Hepatitis C Screening Discontinued IPV Vaccines Aged Out No longer eligi ble based on patient's age to complete this topic MMR Vaccines Aged Out No longer eligi ble based on patient's age to complete this topic Meningococcal ACWY Vaccine Aged Out N o longer eligible based on patient's age to complete this topic Meningococcal B Vaccine Aged Out No l onger eligible based on patient's age to complete this topic RSV Immunization Patients Under 20 months Aged Out No longer eligible based on patient's age to complete this topic Varicella Vaccines Aged Out No longer eligible based on patient's age to complete this topic Procedures Procedure Name Priority Date/Time Associated Diagnosis Comments BASIC METABOLIC PANEL Routine 01/13/2025 9:59 AM EDT Routine history and physical examination of adult COMPLETE BLOOD COUNT Routine 01/13/2025 9:59 AM EDT Routine history and physical examination of adult LIPID PANEL WITH REFLEX TO DIRECT LDL Routine 01/13/2025 9:59 AM EDT Routine history and physical examination of adult BORRELIA BURGDORFERI ANTIBODY Routine 01/13/2025 9:59 AM EDT Chronic pain of left thumb URIC ACID Routine 01/13/2025 9:59 AM EDT Chronic pain of left thumb RHEUMATOID FACTOR Routine 01/13/2025 9:5 9 AM EDT Chronic pain of left thumb ESTER IFA WITH TITER AND PATTERN Routine 01/13/2025 9:59 AM EDT Chronic pain of left thumb XR HAND 3+ VIEWS LEFT Routine 01/13/2025 9:43 AM EDT Chronic pain of left thumb from Last 3 Months Results * (ABNORMAL) Lipid panel with reflex to direct LDL (01/13/2025 9:59 AM EDT) Cholesterol 181 0 - 200 mg/dL LAB CHEMISTRY METHOD 01/13/2025 1:47 PM EDT [facility] Triglycerides 72 0 - 150 mg/dL LAB CHEMISTRY METHOD 01/13/2025 1:47 PM EDT [facility] HDL 65 >=40 mg/dL LAB CHEMISTRY METHOD 01/13/2025 1:47 PM EDT [facility] LDL Calculated 102(H) 0 - 100 mg/dL LAB CHEMISTRY METHOD 01/13/2025 1:47 PM EDT [facility] VLDL Cholesterol Bishnu 14.4 mg/dL LAB CHEMISTRY METHOD 01/13/2025 1:47 PM EDT [facility] Non HDL Chol. (LDL+VLDL) 116 <145 mg/dL LAB CHEMISTRY METHOD 01/13/2025 1:47 PM EDT [facility] Chol/HDL Ratio 2.8 0.0 - 4.4 LAB CHEMISTRY METHOD 01/13/2025 1:47 PM EDT [facility] Blood Venous blood specimen / Unknown Venipuncture / Unknown 01/13/2025 9:59 AM EDT 01/13/2025 9:59 AM EDT us Laura ARRINGTON LAB BLOOD ORDERABLES Fi nal Result [facility] [address] [place] [address], * ESTER IFA with titer and pattern (01/13/2025 9:59 AM EDT) [facility] ESTER Negative Negative 01/14/2025 9:22 AM EDT [facility] Blood Venous blood specimen / Unknown Venipuncture / Unknown 01/13/2025 9:59 AM EDT 01/13/2025 9:59 AM EDT [facility] LAB BLOOD ORDERABLES Fi nal Result Performing Organization Address [facility] Co de Phone Number [facility] [address] [place] [address], * Borrelia burgdorferi antibody (01/13/2025 9:59 AM EDT) [facility] Lyme Ab Negative Negative LAB CHEMISTRY METHOD 01/13/2025 1:03 PM EDT [facility] Comment: No laboratory evidence of infection with B. burgdorferi (Lyme disease). Negative results may occur in patients recently infected (<=14 days) with B. burgdorferi. If recent infection is suspected, repeat testing on a new sample collected in 7- 14 days is recommended. Blood Venous blood specimen / Unknown Venipuncture / Unknown 01/13/2025 9:59 AM EDT 01/13/2025 9:59 AM EDT [facility] LAB BLOOD ORDERABLES Fi nal Result Performing Organization Address City/[facility]/ZIP Co de Phone Number [facility] [address] [place] [address], * Complete blood count (01/13/2025 9:59 AM EDT) [facility] WBC 5.0 4.8 - 10.8 K/[facility] LAB HEMETOLOGY METHOD 01/13/2025 12:41 PM EDT [facility] RBC 4.50 3.80 - 4.80 M/mcL LAB HEMETOLOGY METHOD 01/13/2025 12:41 PM [facility] Hemoglobin 13.0 11.5 - 16.0 g/dL LAB HEMETOLOGY METHOD 01/13/2025 12:41 PM [facility] Hematocrit 40.5 35.0 - 47.0 % LAB HEMETOLOGY METHOD 01/13/2025 12:41 PM [facility] MCV 89.2 79.0 - 98.0 FL LAB HEMETOLOGY METHOD 01/13/2025 12:41 PM [facility] MCH 28.6 27.0 - 32.0 pcg LAB HEMETOLOGY METHOD 01/13/2025 12:41 PM [facility] MCHC 32.1 32.0 - 37.0 g/dL LAB HEMETOLOGY METHOD 01/13/2025 12:41 PM [facility] RDW 12.4 11.0 - 15.0 % LAB HEMETOLOGY METHOD 01/13/2025 12:41 PM [facility] Platelets 250 130 - 400 K/mcL LAB HEMETOLOGY METHOD 01/13/2025 12:41 PM [facility] MPV 10.8 7.0 - 11.0 FL LAB HEMETOLOGY METHOD 01/13/2025 12:41 PM [facility] NRBC 0.0 <1.0 % LAB HEMETOLOGY METHOD 01/13/2025 12:41 PM [facility] NRBC Absolute 0.00 <0.10 K/mcL LAB HEMETOLOGY METHOD 01/13/2025 12:41 PM [facility] Blood Venous blood specimen / Unknown Venipuncture / Unknown 01/13/2025 9:59 AM EDT 01/13/2025 9:59 AM EDT Laura ARRINGTON LAB BLOOD ORDERABLES Fi nal Result Performing Organization Address City/[facility]/ZIP Co de Phone Number [facility] [address] [place] [address], [place] [phone] * Rheumatoid factor (01/13/2025 9:59 AM EDT) Pathologist [facility] Rheumatoid Factor <10.0 <15.0 I Unit/mL LAB CHEMISTRY METHOD 01/13/2025 1:47 PM EDT [facility] Blood Venous blood specimen / Unknown Venipuncture / Unknown 01/13/2025 9:59 AM EDT 01/13/2025 9:59 AM EDT Laura ARRINGTON LAB BLOOD ORDERABLES Fi nal Result Performing Organization Address [facility] Co de Phone Number [facility] [address] [place] [address], [place] [phone] * Uric acid (01/13/2025 9:59 AM EDT) [facility] Uric Acid 3.4 3.1 - 7.8 mg/dL LAB CHEMISTRY METHOD 01/13/2025 1:47 PM EDT [facility] Blood Venous blood specimen / Unknown Venipuncture / Unknown 01/13/2025 9:59 AM EDT 01/13/2025 9:59 AM EDT Laura ARRINGTON LAB BLOOD ORDERABLES Fi nal Result Performing Organization Address City/[facility]/ZIP Co de Phone Number [facility] [address] [place] [address], * (ABNORMAL) Basic metabolic panel (01/13/2025 9:59 AM EDT) Pathologist [facility] Sodium 139 133 - 145 mmol/L LAB CHEMISTRY METHOD 01/13/2025 1:54 PM EDT [facility] Potassium 4.8 3.5 - 5.5 mmol/L LAB CHEMISTRY METHOD 01/13/2025 1:54 PM T [facility] Chloride 108 96 - 110 mmol/L LAB CHEMISTRY METHOD 01/13/2025 1:54 PM [facility] CO2 29 21 - 32 mmol/L LAB CHEMISTRY METHOD 01/13/2025 1:54 PM [facility] Anion Gap 2(L) 3 - 11 LAB CHEMISTRY METHOD 01/13/2025 1:54 PM [facility] Glucose 88 70 - 100 mg/dL LAB CHEMISTRY METHOD 01/13/2025 1:54 PM [facility] BUN 22 5 - 25 mg/dL LAB CHEMISTRY METHOD 01/13/2025 1:54 PM [facility] Creatinine 0.71 0.50 - 1.10 mg/dL LAB CHEMISTRY METHOD 01/13/2025 1:54 PM [facility] eGFR 102 >=60 mL/min/1. 73m2 LAB CHEMISTRY METHOD 01/13/2025 1:54 PM [facility] Comment:Calculation based on the Chronic Kidney Disease Epidemiology Collaboration (CKD-EPI) equation refit without adjustment for race. BUN/Creatinine Ratio 31.0 LAB CHEMISTRY METHOD 01/13/2025 1:54 PM [facility] Calcium 9.5 8.5 - 10.5 mg/dL LAB CHEMISTRY METHOD 01/13/2025 1:54 PM [facility] Blood Venous blood specimen / Unknown Venipuncture / Unknown 01/13/2025 9:59 AM EDT 01/13/2025 9:59 AM EDT us Laura ARRINGTON LAB BLOOD ORDERABLES Fi nal Result [facility] [address] [place] [address], [place] [phone] * XR Hand 3+ Views Left (01/13/2025 9:43 AM EDT) Anatomical Region Laterality Modality Upper Extremities, Hand Left [facility] 01/13/2025 4:21 PM EDT Impressions 01/13/2025 4:22 PM EDT Minor degenerative spurring of the IP joint. Otherwise, unremarkable exam. -------- FINAL REPORT -------- Dictated By: Bianca Blanton Dictated Date: 01/13/2025 16:21 ET Assigned Physician: Bianca Blanton Reviewed and Electronically Signed By: Bianca Blanton Signed Date: 01/13/2025 16:22 ET Workstation ID: [id number] Transcribed By: Self Edit Transcribed Date: 01/13/2025 16:21 ET Narrative 01/13/2025 4:22 PM EDT LEFT HAND, 3 VIEWS HISTORY: Left thumb pain. FINDINGS: There is minor spurring of the IP joint. There is no acute fracture, malalignment, joint effusion, soft tissue abnormality, or radiopaque foreign body. Procedure Note Bianca Blanton MD - 01/13/2025 LEFT HAND, 3 VIEWS HISTORY: Left thumb pain. FINDINGS: There is minor spurring of the IP joint. There is no acute fracture, malalignment, joint effusion, soft tissueabnormality, or radiopaque foreign body. IMPRESSION: Minor degenerative spurring of the IP joint. Otherwise, unremarkableexam. -------- FINAL REPORT -------- Dictated By: Bianca Blanton Dictated Date: 01/13/2025 16:21 ET Assigned Physician: Bianca Blanton Reviewed and Electronically Signed By: Bianca Blanton Signed Date: 01/13/2025 16:22 ET Workstation ID: [id number] Transcribed By: Self Edit Transcribed Date: 01/13/2025 16:21 ET Laura ARRINGTON IMG XR PROCEDURES Final Result from Last 3 Months Insurance [facility] Care Teams Neon Glass Blower Relationship Specialty Start Date End Date Henri Freeman MD [address] [place] [id number] PCP - General 01/17/09
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
== END 2025-02-05 09:34 | disposition home or self-care (01) ==
LOC: HO.HUSH 08:22
PROVIDERS: PCP Internal Medicine; Visit Provider Urology
DX: R32 Unspecified urinary incontinence (principal)
CPT/HCPCS: 51728; 51741; 51784; 51797

== ENCOUNTER → 2025-02-05 08:21 | Outpatient (BNVA) | payer OTHER, SELFPAY | PROVIDERS: PCP Internal Medicine; Visit Provider Urology | DX: N39.46 Mixed incontinence (principal); N32.81 Overactive bladder; N18.31 Chronic kidney disease, stage 3a; R31.29 Other microscopic hematuria; Z87.440 Personal history of urinary (tract) infections | CPT/HCPCS: 51728; 51741; 51784; 51797; 81003 ==

== ENCOUNTER 2025-05-18 08:23 | Outpatient (AMB) | payer OTHER, SELFPAY ==
--- OUTSIDE RECORDS SUMMARY | 2025-05-18 08:31 | XMS_ITS | Clinical Summary ---
Author Organization [address] Address [address] [place] [phone] Phone Care Team Providers Care Conventions Reservationist Name Role Phone Henri Freeman MD Primary Care Provider [phone] Allergies Active Allergy Reactions Criticality Noted Date [...] Amount: 1.5 mg 30 tablet 07/17/2024 Active meclizine (ANTIVERT) 25 mg tablet TAKE 1 TABLET BY MOUTH 3 TIMES A DAY IF NEEDED FOR DIZZINESS. 90 tablet 1 12/23/2024 Active meloxicam (MOBIC) 7.5 mg tablet TAKE 1 TABLET BY MOUTH EVERY DAY NEEDED FOR PAIN 30 tablet 5 02/05/2025 Active omeprazole (PriLOSEC) [address] capsule Take 1 capsule (20 mg total) by mouth 1 (one) time each day. 90 capsule 1 02/23/2025 6 Active sertraline (ZOLOFT) 50 mg tablet Take 1 tablet (50 mg total) by mouth 1 (one) time each day. 90 tablet 1 02/23/2025 6 Active sertraline (ZOLOFT) 25 mg tablet Take 1 tablet (25 mg total) by mouth 1 (one) time each day. 90 tablet 1 02/23/2025 6 Active Active Problems Problem Noted Date Diagnosed Date Recurrent urinary tract infection 08/17/2021 Overview (09/12/2023): Follows with [facility] urology annual basis. Follows with [facility] urology annual basis. Esophageal dysphagia 04/11/2020 Seasonal [...] July 2017 (Dr. Ulloa) Depressive disorder 03/22/2009 Immunizations Immunization Administration Dates Next Due Influenza trivalent, recombi nant, 0.5mL, preservative free (Flublok) 9yo and older 03/13/2025 Influenza, Unspecified 03/22/2022,2020,03/24/2020,02/20,04/13/2018,05/04/2015,07/31/2012 ,03/22/2009 Moderna SARS-CoV-2 COVID-19, mRNA, LNP-S, preservative free 06/25/2021 PPD Test 05/21/2018 Pneumococcal conjugate 21 va lent (CAPVAXIVE, PCV 21) 19yo and older 03/13/2025 Pneumococcal polysaccharide 23 valent (Pneumovax 23) 2yo [...] HISTORICAL HYSTERECTOMY UPPER GASTROINTESTINAL ENDOSCOPY 08/27/2018 PROCEDURE: [facility] UPPER GI ENDOSCOPY PERFORMED; COMMENT: LA grade D reflux esophagitis; start PPI rx. UPPER GASTROINTESTINAL ENDOSCOPY 01/14/2020 PROCEDURE: NH UPPER GI ENDOSCOPY PERFORMED; COMMENT: Small hiatal hernia, no esophagitis, possible Martinez's esophagus, biopsies: No Barretts. OTHER SURGICAL HISTORY 09/08/2020 PROCEDURE: [place] UNLISTED LAPAROSCOPY PROCEDURE OVIDUCT OVARY; COMMENT: Bilateral [...] for your loved ones. For example, child welfare assistant or elderly care for an older adult? [...] Date Recorded What is your living situation? 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 [address] [place] [phone] Henri Freeman MD [address] [place] [address] Health Maintenance Due Date Last Done Comments Breast Cancer Screening 1972 Colorectal Cancer Screening: Colonoscopy 1972 Hepatitis B Vaccines (1 of 3 - 19+ 3-dose series) 1991 RSV Immunization Adult Patients (1 - Risk 50-74 years 1-dose series) 2022 Zoster Vaccines (2 of 2) 10/25/2022 08/30/2022 DTaP,Tdap,and Td Vaccines (3 - Td or Tdap) 09/04/2023 09/04/2013, 07/08/2003 COVID-19 Vaccine ( - season) 2025 06/25/2021, 12/09/2020, 11/11/2020 Cervical Cancer Screening: Pap Smear 10/10/2025 10/10/2022 Social Influencers of Health Screening 01/22/2026 01/22/2025 Cholesterol Screening (Lipid Panel) 01/13/2030 01/13/2025, 01/13/2024, 01/15/2023 Depression Screening Completed 01/22/2025 Influenza Vaccine Completed 03/13/2025, , 03/09/2023, Additional history exists Pneumococcal Vaccine: 50+ Years Completed 03/13/2025, 03/11/2021, 03/24/2020, Additional history exists HIB Vaccines Aged Out [...] Priority Date/Time Associated Diagnosis Comments LIPID PANEL WITH REFLEX TO DIRECT LDL Routine 01/13/2025 9:59 AM EDT Routine history and physical examination of adult from Last 3 Months or Most Recently Relevant to Health Maintenance Results * (ABNORMAL) Lipid panel with reflex to direct LDL (01/13/2025 9:59 AM EDT) Cholesterol 181 0 - 200 mg/dL LAB CHEMISTRY METHOD 01/13/2025 1:47 PM EDT [facility] Triglycerides 72 0 - 150 mg/dL LAB CHEMISTRY METHOD 01/13/2025 1:47 PM EDT [facility] HDL 65 >=40 mg/dL LAB CHEMISTRY METHOD 01/13/2025 1:47 PM EDT [facility] LDL Calculated 102(H) 0 - 100 mg/dL LAB CHEMISTRY METHOD 01/13/2025 1:47 PM EDT [facility] VLDL Cholesterol Bishnu 14.4 mg/dL LAB CHEMISTRY METHOD 01/13/2025 1:47 PM EDT [facility] Non HDL Chol. (LDL+VLDL) 116 <145 mg/dL LAB CHEMISTRY METHOD 01/13/2025 1:47 PM EDT [facility] Chol/HDL Ratio 2.8 0.0 - 4.4 LAB CHEMISTRY METHOD 01/13/2025 1:47 PM EDT [facility] Blood Venous blood specimen / Unknown Venipuncture / Unknown 01/13/2025 9:59 AM EDT 01/13/2025 9:59 AM EDT us Laura [facility] LAB BLOOD ORDERABLES Fi nal Result [facility] [address] [place] [address], from Last 3 Months or Most Recently Relevant to Health Maintenance Insurance [facility] Care Teams Conventions Reservationist Relationship Specialty Start Date End Date Henri Freeman MD [address] [place] [address] PCP - General 01/17/09
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
== END 2025-05-18 09:09 | disposition home or self-care (01) ==
LOC: HO.HUSH 08:24
PROVIDERS: PCP Internal Medicine; Visit Provider Nurse Practitioner Family
DX: R31.29 Other microscopic hematuria (principal); N32.81 Overactive bladder; Z13.9 Encounter for screening, unspecified
CPT/HCPCS: 99213; G2211

== ENCOUNTER 2025-05-18 08:23 | Outpatient (REF) | payer OTHER, SELFPAY | END 2025-05-18 08:24 | disposition home or self-care (01) | LOC: HO.LAB 08:23 | PROVIDERS: PCP Internal Medicine; Visit Provider Nurse Practitioner Family | DX: N32.81 Overactive bladder (principal); Z13.89 Encounter for screening for other disorder | CPT/HCPCS: 51798; 81003; 88112 ==